=== PATIENT | female | born 1980 | race Caucasian/White ===

== ENCOUNTER 2016-12-19 18:28 | Emergency (ER) | payer OTHER ==
[2016-12-19] MEDS ORDERED: Sulfamethox/Trimethoprim DS 800/160* TAB PO ONE (19:48)
[2016-12-19] MEDS ORDERED: Tetanus-Diptheria Toxoids* 0.5 ML SYRINGE IM ONE (19:48)
--- NOTE | 2016-12-19 19:56 | ED ---
Upper Extremity Pain - HPI Summary HPI Summary: PT PRESENTED TO ER FOR REDNESS OVER THE LF AXILLA FOR THE PAST FOUR DAYS. PT ALSO HAS MILD SWELLING AND PAIN OVER THE AXILLA. NO INJURY AND INSECT BITE OVER THE LF AXILLA. - History of Current Complaint Chief Complaint: EDExtremityUpper Stated Complaint: POSSIBLE INFECTION LT ARM Time Seen by Provider: 12/19/16 19:28 Hx Obtained From: Patient Mechanism Of Injury: Unknown Onset/Duration: Started Days Ago Timing: Constant Severity Initially: Mild Severity Currently: Mild Pain Location: Other: - AXILLA LF Aggravating Factor(s): Movement Alleviating Factor(s): Rest Associated Signs & Symptoms: Positive: Negative - Risk Factors Non-Orthopedic Risk Factor: Negative DVT Risk Factors: Negative Septic Arthritis Risk Factor: Negative - Allergies/Home Medications Allergies/Adverse Reactions: Allergies Allergy/AdvReac Type Severity Reaction Status Date / Time Acetaminophen [From Ultracet] Allergy Intermediate n/v itching Verified 14:22 Bupropion [From Wellbutrin] Allergy Intermediate Nausea Verified 12/19/16 18:35 Clindamycin Allergy Intermediate n/v itching Verified 02/09/16 14:22 Penicillins [PCN] Allergy Intermediate hivers Verified 02/09/16 14:22 Tramadol [From Ultracet] Allergy Intermediate n/v itching Verified 02/09/16 14: 22 Pregabalin [From Lyrica] Allergy Mild Unknown Verified 12/19/16 18:35 Reaction Details Latex Allergy Rash And Verified 02/09/16 14:22 Itching bioxin Allergy Intermediate n/v Uncoded 07/16/15 10:05 PMH/Surg Hx/FS Hx/Imm Hx Endocrine/Hematology History: Reports: Hx Systemic Lupus Erythematosus Denies: Hx Diabetes Cardiovascular History: Reports: Hx Hypertension Denies: Hx Pacemaker/ICD Respiratory History: Reports: Hx Asthma, Other Respiratory Problems/Disorders - LUPUS/SARCOIDOSIS GI History: Reports: Hx Gastroesophageal Reflux Disease, Hx Irritable Bowel Denies: Other GI Disorders History: Comment Only: Other Problems/Disorders - CALCULI Musculoskeletal History: Reports: Hx Back Problems, Hx Bursitis Sensory History: Reports: Hx Contacts or Glasses Denies: Hx Hearing Aid Opthamlomology History: Reports: Hx Contacts or Glasses Neurological History: Reports: Other Neuro Impairments/Disorders - pain clinic injections Psychiatric History: Reports: Hx Anxiety - Riding in a car. Denies: Hx Panic Disorder - Surgical History Surgery Procedure, Year, and Place: HYSTERECTOMY; Exploratory Lap Abdomen; Tubal Ligation; Appendectomy; Lymph Node Biopsy of Lung; Tonsilectomy; Left Ulnar Nerve Surgery; Removal of wisdom teeth Infectious Disease History: Yes Infectious Disease History: Denies: Traveled Outside the [place] in Last 30 Days - Social History Alcohol Use: None Substance Use Type: Reports: None Substance Use Comment - Amount & Last Used: morphine Hx Tobacco Use: Yes Smoking Status (MU): Former Smoker Type: Cigarettes Amount Used/How Often: 1/2 PPD Have You Smoked in the Last Year: Yes Review of Systems - ROS Summary Review of Systems Summary: PAIN/REDNESS LF AXILLA. Constitutional: Negative Skin: Other - REDNESS LF AXILLA, MILD SWELLING, NO NV DEFICIT. All Other Systems Reviewed And Are Negative: Yes Physical Exam Triage Information Reviewed: Yes Vital Signs On Initial Exam: Initial Vitals Temp Pulse Resp BP Pulse Ox 98.6 F 87 16 120/76 100 12/19/16 18:30 12/19/16 18:30 12/19/16 18:30 12/19/16 18:30 12/19/16 18:30 Vital Signs Reviewed: Yes Appearance: Positive: Well-Appearing Skin: Positive: Warm Head/Face: Positive: Normal Head/Face Inspection Eyes: Positive: Normal ENT: Positive: Normal ENT inspection Neck: Positive: Supple Respiratory/Lung Sounds: Positive: Clear to Auscultation, Breath Sounds Present Cardiovascular: Positive: Normal, RRR, Pulses are Symmetrical in both Upper and Lower Extremities Abdomen Description: Positive: Nontender Pelvic Exam: Positive: active bleeding Musculoskeletal: Positive: Other - 4 INCHES [id number] OF REDNESS AND SWELLING OVER THE LF AXILLA TENDERNESS OVER THE LF AXILLA. NO FLUCTUATION OVER THE SWELLING. Neurological: Positive: Normal Diagnostics - Vital Signs Vital Signs Temp Pulse Resp BP Pulse Ox 12/19/16 18:30 98.6 F 87 16 120/76 100 - Laboratory Lab Statement: Any lab studies that have been ordered have been reviewed, and results considered in the medical decision making process. Course/Dx - Course Assessment/Plan: PT HAD CELLULITIS LF AXILLA AND WILL GIVE ABX AND WILL DC TO FOLLOW WITH PMD. IF REDNESS GETS BIGGER TO COME BACK TO ER IMMEDIATELY. IN THE NEXT 72 HRS. - Diagnoses Provider Diagnoses: Cellulitis of axilla, left Discharge - Discharge Plan Condition: Stable Disposition: HOME Prescriptions: Ibuprofen TAB* [Motrin TAB* 600 MG] 600 mg PO Q8H PRN #21 tab PRN Reason: Pain Sulfamethox/Trimethoprim DS* [Bactrim DS 800/160 TAB*] 1 tab PO BID #20 tab
[2016-12-19 20:47] VITALS: BP 103/76
== END 2016-12-19 20:46 | disposition home or self-care (01) ==
LOC: ED 18:28
DX: L03.112 Cellulitis of left axilla (principal); M32.9 Systemic lupus erythematosus, unspecified; I10 Essential (primary) hypertension; K21.9 Gastro-esophageal reflux disease without esophagitis; Z87.891 Personal history of nicotine dependence; Z88.0 Allergy status to penicillin; Z23 Encounter for immunization
CPT/HCPCS: 90471; 99282; A9270-GY

== ENCOUNTER 2017-05-05 18:20 | Emergency (ER) | payer OTHER ==
[2017-05-05] MEDS ORDERED: oxyCODONE TAB* 5 MG TAB PO ONE ×2 (20:41→21:19)
[2017-05-05] MEDS ORDERED: Ketorolac INJ* 60 MG/2 ML VIAL IM ONE (20:41)
[2017-05-05 21:07] VITALS: BP 127/72
--- NOTE | 2017-05-05 21:09 | RAD ---
Indication: Left foot pain. 3 views of left foot demonstrates no fracture. No other bone or joint abnormality is identified. IMPRESSION: No fracture of the left foot is noted.
--- NOTE | 2017-05-05 21:10 | RAD ---
Indication: Left ankle pain and swelling. 3 views of the left ankle demonstrates no fracture. No other bone or joint abnormality is identified. Ankle mortise is intact. IMPRESSION: No fracture of the left ankle is noted.
--- NOTE | 2017-05-12 14:19 | ED ---
Maddie Ingram Alok, scribed for Romeo Banerjee MD on 05/05/17 at 2043 . Lower Extremity - HPI Summary HPI Summary: 37F presents to the ED with left ankle swelling and pain following an accident while playing basketball at 1600. Pt reportedly rolled her left ankle on the concrete. Pt notes difficulty ambulating/bearing weight. Pt denies pain medications [employer]. PMHx includes lupus and fibromyalgia. - History of Current Complaint Chief Complaint: EDExtremityUpper Stated Complaint: LT FOOT INJURY Time Seen by Provider: 05/05/17 20:34 Hx Obtained From: Patient Mechanism Of Injury: Twisted Onset of Pain: Immediate Onset/Duration: Still Present Severity Initially: Moderate Severity Currently: Moderate Pain Intensity: 9 Pain Scale Used: 0-10 Numeric Timing: Constant Location: Is Discrete @ - left ankle Associated Signs And Symptoms: Positive: Swelling Aggravating Factor(s): Ambulation, Weight Bearing Alleviating Factor(s): Nothing Able to Bear Weight: No - Allergies/Home Medications Allergies/Adverse Reactions: Allergies Allergy/AdvReac Type Severity Reaction Status Date / Time Acetaminophen [From Ultracet] Allergy Intermediate n/v itching Verified 14:22 Bupropion [From Wellbutrin] Allergy Intermediate Nausea Verified 12/19/16 18:35 Clindamycin Allergy Intermediate n/v itching Verified 02/09/16 14:22 Penicillins [PCN] Allergy Intermediate hivers Verified 02/09/16 14:22 Tramadol [From Ultracet] Allergy Intermediate n/v itching Verified 02/09/16 14: 22 Pregabalin [From Lyrica] Allergy Mild Unknown Verified 12/19/16 18:35 Reaction Details Latex Allergy Rash And Verified 02/09/16 14:22 Itching bioxin Allergy Intermediate n/v Uncoded 07/16/15 10:05 PMH/Surg Hx/FS Hx/Imm Hx Endocrine/Hematology History: Reports: Hx Systemic Lupus Erythematosus Denies: Hx Diabetes Cardiovascular History: Reports: Hx Hypertension Denies: Hx Pacemaker/ICD Respiratory History: Reports: Hx Asthma, Other Respiratory Problems/Disorders - LUPUS/SARCOIDOSIS GI History: Reports: Hx Gastroesophageal Reflux Disease, Hx Irritable Bowel Denies: Other GI Disorders History: Comment Only: Other Problems/Disorders - CALCULI Musculoskeletal History: Reports: Hx Back Problems, Hx Bursitis Sensory History: Reports: Hx Contacts or Glasses Denies: Hx Hearing Aid Opthamlomology History: Reports: Hx Contacts or Glasses Neurological History: Reports: Other Neuro Impairments/Disorders - pain clinic injections Psychiatric History: Reports: Hx Anxiety - Riding in a car. Denies: Hx Panic Disorder - Surgical History Surgery Procedure, Year, and Place: HYSTERECTOMY; Exploratory Lap Abdomen; Tubal Ligation; Appendectomy; Lymph Node Biopsy of Lung; Tonsilectomy; Left Ulnar Nerve Surgery; Removal of wisdom teeth Infectious Disease History: No Infectious Disease History: Denies: Traveled Outside the [place] in Last 30 Days - Family History Known Family History: Negative: Hypertension - Social History Lives: With Family Alcohol Use: None Substance Use Type: Reports: None Substance Use Comment - Amount & Last Used: morphine Hx Tobacco Use: Yes Smoking Status (MU): Former Smoker Type: Cigarettes Amount Used/How Often: 1/2 PPD Have You Smoked in the Last Year: Yes Review of Systems Negative: Fever Positive: Other - left ankle pain All Other Systems Reviewed And Are Negative: Yes Physical Exam - Summary Physical Exam Summary: Constitutional: Well-developed, Well-nourished, Alert. (-) Distressed Skin: Warm, Dry HENT: Normocephalic; Atraumatic Eyes: Conjunctiva normal Neck: Musculoskeletal ROM normal neck. (-) JVD, (-) Stridor, (-) Tracheal deviation Cardio: Rhythm regular, rate normal, Heart sounds normal; Intact distal pulses; The pedal pulses are 2+ and symmetric. Radial pulses are 2+ and symmetric. (-) Murmur Pulmonary/Chest wall: Effort normal. (-) Respiratory distress, (-) Wheezes, (-) Rales Abd: Soft, (-) Tenderness, (-) Distension, (-) Guarding, (-) Rebound Musculoskeletal: Anterior ankle swollen. No tenderness lateral or medial talus. Dorsal foot swollen. Lymph: (-) Cervical adenopathy Neuro: Alert, Oriented x3 Psych: Mood and affect Normal Triage Information Reviewed: Yes Vital Signs On Initial Exam: Initial Vitals Temp Pulse Resp BP Pulse Ox 98.8 F 78 20 123/78 100 05/05/17 18:42 05/05/17 18:42 05/05/17 18:42 05/05/17 18:42 05/05/17 18:42 Vital Signs Reviewed: Yes Diagnostics - Vital Signs Vital Signs Temp Pulse Resp BP Pulse Ox 05/05/17 19:00 75 15 112/78 98 05/05/17 18:44 98.7 F 72 20 123/78 100 05/05/17 18:42 98.8 F 78 20 123/78 100 - Laboratory Lab Statement: Any lab studies that have been ordered have been reviewed, and results considered in the medical decision making process. - Radiology Foot XRAY Xray Interpretation: Positive (See Comments) - IMPRESSION: NO FRACTURE OF THE LEFT FOOT IS NOTED. Radiology Interpretation Completed By: Radiologist Ankle XRAY Xray Interpretation: Positive (See Comments) - IMPRESSION: NO FRACTURE OF THE LEFT ANKLE IS NOTED. Radiology Interpretation Completed By: Radiologist Lower Extremity Course/Dx - Diagnoses Provider Diagnoses: Strain of left foot Discharge - Discharge Plan Condition: Stable Disposition: HOME Patient Education Materials: Ankle Strain (ED) Additional Instructions: Please follow up with your primary care provider in the next 3-5 days. Repeat XRAYS may be needed. The documentation as recorded by the Maddie vasquez Alok accurately reflects the service I personally performed and the decisions made by me, Romeo Banerjee MD.
== END 2017-05-05 21:50 | disposition home or self-care (01) ==
LOC: ED 18:20
DX: S96.912A Strain of unspecified muscle and tendon at ankle and foot level, left foot, initial encounter (principal); X58.XXXA Exposure to other specified factors, initial encounter; Y93.67 Activity, basketball; Y92.9 Unspecified place or not applicable
CPT/HCPCS: 96372; 99282; A9270-GY; J1885

== ENCOUNTER 2017-05-07 23:00 | Emergency (ER) | payer OTHER ==
[2017-05-08 00:52] VITALS: BP 125/76
--- NOTE | 2017-05-31 08:11 | ED ---
Lower Extremity - HPI Summary HPI Summary: Pt here w/ concern for continued pain and swelling of Lt ankle since injury s/p fall 05/05. Was seen here and XR preformed - no fx, no dislocation. Pt has been taking ibuproden and oxycodone for pain which help some - elevation efforts have been suboptimal after discussion about how she's been doing this. She has multiple other condition including lupus, sarcoidosis and neuropathies. - History of Current Complaint Chief Complaint: EDExtremityLower Stated Complaint: LEFT ANKLE PAIN Time Seen by Provider: 05/07/17 23:48 Hx Obtained From: Patient Pain Intensity: 7 Pain Scale Used: 0-10 Numeric - Allergies/Home Medications Allergies/Adverse Reactions: Allergies Allergy/AdvReac Type Severity Reaction Status Date / Time Acetaminophen [From Ultracet] Allergy Intermediate n/v itching Verified 23:23 Bupropion [From Wellbutrin] Allergy Intermediate Nausea Verified 05/07/17 23:23 Clindamycin Allergy Intermediate n/v itching Verified 05/07/17 23:23 Penicillins [PCN] Allergy Intermediate hivers Verified 05/07/17 23:23 Tramadol [From Ultracet] Allergy Intermediate n/v itching Verified 05/07/17 23: 23 Pregabalin [From Lyrica] Allergy Mild Unknown Verified 05/07/17 23:23 Reaction Details Latex Allergy Rash And Verified 05/07/17 23:23 Itching bioxin Allergy Intermediate n/v Uncoded 05/07/17 23:23 PMH/Surg Hx/FS Hx/Imm Hx Previously Healthy: Yes Endocrine/Hematology History: Reports: Hx Systemic Lupus Erythematosus Denies: Hx Diabetes Cardiovascular History: Reports: Hx Hypertension Denies: Hx Pacemaker/ICD Respiratory History: Reports: Hx Asthma, Other Respiratory Problems/Disorders - LUPUS/SARCOIDOSIS GI History: Reports: Hx Gastroesophageal Reflux Disease, Hx Irritable Bowel Denies: Other GI Disorders History: Comment Only: Other Problems/Disorders - CALCULI Musculoskeletal History: Reports: Hx Back Problems, Hx Bursitis Sensory History: Reports: Hx Contacts or Glasses Denies: Hx Hearing Aid Opthamlomology History: Reports: Hx Contacts or Glasses Neurological History: Reports: Other Neuro Impairments/Disorders - pain clinic injections Psychiatric History: Reports: Hx Anxiety - Riding in a car. Denies: Hx Panic Disorder - Surgical History Surgery Procedure, Year, and Place: HYSTERECTOMY; Exploratory Lap Abdomen; Tubal Ligation; Appendectomy; Lymph Node Biopsy of Lung; Tonsilectomy; Left Ulnar Nerve Surgery; Removal of wisdom teeth Infectious Disease History: Denies: Traveled Outside the [place] in Last 30 Days - Social History Lives: With Family Alcohol Use: Rare Hx Substance Use: No Substance Use Type: Reports: None Substance Use Comment - Amount & Last Used: morphine Hx Tobacco Use: Yes Smoking Status (MU): Former Smoker Type: Cigarettes Amount Used/How Often: 1/2 PPD Have You Smoked in the Last Year: Yes Review of Systems Negative: Fever, Chills Negative: Chest Pain Negative: Shortness Of Breath Positive: no symptoms reported Musculoskeletal: Other - see HPI Positive: Arthralgia, Decreased ROM, Edema Skin: Other - see HPI Negative: Weakness, Paresthesia, Numbness Positive: Anxious All Other Systems Reviewed And Are Negative: Yes Physical Exam Triage Information Reviewed: Yes Vital Signs On Initial Exam: Initial Vitals Temp Pulse Resp BP Pulse Ox 99.0 F 77 20 118/85 99 05/07/17 23:05 05/07/17 23:05 05/07/17 23:05 05/07/17 23:05 05/07/17 23:05 Vital Signs Reviewed: Yes Appearance: Positive: Well-Appearing, No Pain Distress, Well-Nourished Skin: Positive: Warm, Dry - mild ecchymosis of affected area w/ mild edema Respiratory/Lung Sounds: Positive: Breath Sounds Present Cardiovascular: Positive: Pulses are Symmetrical in both Upper and Lower Extremities Musculoskeletal: Positive: Limited @ - Lt toes ROM limited d/t pain, swelling - no gross deformity, no tenting of skin, no crepitus; ankle appears well Neurological: Positive: Normal, Sensory/Motor Intact, Alert, Oriented to Person Place, Time Psychiatric: Positive: Normal Diagnostics - Vital Signs Vital Signs Temp Pulse Resp BP Pulse Ox 05/08/17 00:50 98.3 F 72 14 125/76 05/07/17 23:46 99 F 77 16 118/85 100 05/07/17 23:05 99.0 F 77 20 118/85 99 - Laboratory Lab Statement: Any lab studies that have been ordered have been reviewed, and results considered in the medical decision making process. Lower Extremity Course/Dx - Diagnoses Provider Diagnoses: Left ankle sprain Discharge - Discharge Plan Condition: Stable Disposition: HOME Patient Education Materials: Foot Sprain (ED) Referrals: Deven Lopez MD [Medical Doctor] - Additional Instructions: You appear to have a foot sprain based on your injury and clinical symptoms. This may be a partial tear or complete tear of ligaments and/or tendons in your foot. There is also a possibility you could have a very fine fracture that is not visualized on XR. It is advised that you do not bear weight, keep leg elevated as much and as far as possible. Ice. Continue ibuprofen with food for pain/swelling and oxycodone for pain. Follow-up with orthopedist tomorrow morning for appointment tomorrow. Call at 8:00 - contact information included here. *If your foot continues to swell, becomes red/shiny and/or your toes change color (ie. dark nail beds, lack of pink color when pinched, lack of pulse, etc) return to ED
== END 2017-05-08 00:52 | disposition home or self-care (01) ==
LOC: ED 23:00
DX: S93.402D Sprain of unspecified ligament of left ankle, subsequent encounter (principal); W19.XXXD Unspecified fall, subsequent encounter; M32.9 Systemic lupus erythematosus, unspecified; I10 Essential (primary) hypertension; J45.909 Unspecified asthma, uncomplicated; K21.9 Gastro-esophageal reflux disease without esophagitis; Z90.710 Acquired absence of both cervix and uterus; Z88.0 Allergy status to penicillin; Z88.8 Allergy status to other drugs, medicaments and biological substances; Z88.6 Allergy status to analgesic agent; Z88.1 Allergy status to other antibiotic agents; Z88.5 Allergy status to narcotic agent; Z91.040 Latex allergy status; Z87.891 Personal history of nicotine dependence
CPT/HCPCS: 99281

== ENCOUNTER 2018-01-30 07:52 | Day surgery (SDC) | payer OTHER ==
[~2018-01-30 07:52] MED LIST: Buffered Lidocaine 0.9% SYRIN* 5 ML/SYR SYRINGE INTRADERM ONE; Dexamethasone IV* 4 MG/ML 1 ML (4 MG) IV SLOW PU ONE; Famotidine IV* 10 MG/ML 2 ML (20 mg) IV ONE
[2018-01-30] MEDS ORDERED: Dexamethasone IV* 4 MG/ML 1 ML (4 MG) ONE (08:17)
[2018-01-30] MEDS ORDERED: Famotidine IV* 10 MG/ML 2 ML (20 mg) ONE (08:18)
[2018-01-30] MEDS ORDERED: Clindamycin 900 MG IVPREMIX(* 0 MG/0 ML SDV IV ONE (08:18)
[2018-01-30] MEDS ORDERED: ceFAZolin 2 GM in 100 MLS NS (*) BAG IVPB ONE (08:49)
[2018-01-30] MEDS ORDERED: Bupivacaine 0.5% SDV PF* 10-30ML VIAL ONE (08:59)
[2018-01-30] MEDS ORDERED: fentaNYL* 50 MCG/ML 2 ML VIAL (100 MCG VIAL) ONE ×2 (09:03→10:18)
[2018-01-30] MEDS ORDERED: Midazolam* 1 MG/ML 2 ML VIAL (2 MG) ONE (09:03)
[2018-01-30] MEDS ORDERED: Ondansetron INJ* 2 MG/ML VIAL ONE (09:37)
[2018-01-30] MEDS ORDERED: EPHEDrine (Pressors)* 50 MG/ML VIAL ONE (09:37)
[2018-01-30] MEDS ORDERED: Propofol* 10 MG/ML 20 ML BTL IV PUSH ONE (09:37)
[2018-01-30] MEDS ORDERED: DiMENhydriNATE IV* 50 MG/ML VIAL IV PUSH PRN (10:07)
[2018-01-30] MEDS ORDERED: Naloxone* 0.4 MG/ML 1 ML VIAL IV PRN (10:07)
[2018-01-30] MEDS: fentaNYL* 50 MCG/ML 2 ML VIAL (100 MCG VIAL) IV PRN ×2 (10:20→10:28)
[2018-01-30] MEDS ORDERED: Lidocaine 2% PF * 5 ML VIAL ONE (10:23)
[2018-01-30] MEDS ORDERED: oxyCODONE TAB* 5 MG TAB ONE (11:03)
[2018-01-30 11:33] VITALS: BP 118/76
--- NOTE | 2018-01-31 14:51 | OP ---
DATE OF OPERATION: 01/30/18 - SDS DATE OF : 82 SURGEON: Deven Lopez MD YARD COORDINATOR: Zunilda Chiang PA-C PRE-OP DIAGNOSIS: Displaced nonunited anterior process fracture, left calcaneus. POST-OP DIAGNOSIS: Displaced nonunited anterior process fracture, left calcaneus. OPERATIVE PROCEDURE: Excision anterior process, left calcaneus. DESCRIPTION OF PROCEDURE: The patient was taken to the operating room where a thigh tourniquet was inflated. We made a 5 cm longitudinal incision over the anterior process of the calcaneus. Extensor brevis musculature was split and then a micro sagittal saw used to remove the anterior process flush with the cuboid. We irrigated thoroughly, closing the brevis with some 2-0 Vicryl, subcu 2-0 Vicryl and then andressa for the skin. A compression dressing applied. [id number] #: [id number] MTDD
== END 2018-01-30 11:37 | disposition home or self-care (01) ==
LOC: OR 07:52
PROVIDERS: ATTEND Orthopaedic Surgery
DX: S92.022K Displaced fracture of anterior process of left calcaneus, subsequent encounter for fracture with nonunion (principal); G47.33 Obstructive sleep apnea (adult) (pediatric); Z68.35 Body mass index [BMI] 35.0-35.9, adult; I10 Essential (primary) hypertension; R01.1 Cardiac murmur, unspecified; J45.909 Unspecified asthma, uncomplicated; M79.7 Fibromyalgia; X58.XXXD Exposure to other specified factors, subsequent encounter; Y92.310 Basketball court as the place of occurrence of the external cause
CPT/HCPCS: 81025; A9270-GY; J1100; J2250; J2405; J2704; J3010

== ENCOUNTER 2018-03-07 03:02 | Emergency (ER) | payer OTHER ==
--- OUTSIDE RECORDS SUMMARY | 2018-03-07 03:19 | XMS REPORT ---
:1980 External Reference #:[id number] Author Organization [employer] Address [address] [address] Phone [phone] Care Team Providers Name Role Phone Gian Diamond MD Primary Care Physician Unavailable Payers Type Date Identification Numbers Payment Provider Subscriber Commercial Effective: Policy Number: [id number] [employer] Jackie Blackwell 2006 Medicaid PayID: [id number] [address] [address] [place] [address] Problems Date Description Provider Status Onset: 04/08/2015 Headache Juani Thompson M.D. Active Onset: 01/15/2016 Cramp in lower leg Juani Thompson M.D. Active Family History Date Family Member(s) Problem(s) Comments General Diabetes General Heart Disease General Hypertension General Cancer General Rheumatoid Arthritis General Kidney Disease Social History Type Date Description Comments Lives With Occupation Disabled ETOH Use Rarely consumes alcohol Smoking Patient is a former smoker Exercise Type/Frequency Exercises sporadically Allergies, Adverse Reactions, Alerts Date Description Reaction Status Severity Comments 12/07/2012 Clindamycin active 12/07/2012 Penicillin active 12/07/2012 Biaxin active 12/07/2012 Ultracet active 12/07/2012 Tramadol active 05/13/2017 Latex active 05/13/2017 Adhesive Tape active Medications Medication Date Status Form Strength Qnty SIG Indications Ordering Provider Oxycodone HCL 01/30 Active Capsules 5mg 30cap 1 - 2 s tabs by venkata Lopez M.D. every 4 -6 hours as needed pain Zonisamide 11/15 Active Capsules 100mg 60cap take two s capsules Bonno, MD by mouth at bedtime Aspirin Active Tablets 81mg 1 po qd Unknown Omeprazole Active Capsules 40mg 30cap [address] roper Cetirizine HCL Active Tablets 10mg 30tab 1 po qd Unknown s Hydrochlorothiazide Active Tablets 25mg 30tab 1 po qd Unknown s Metoprolol Succinate Active Tablets 25mg 30tab 1 po qd Unknown ER / ER 24HR s Hydroxychloroquine Active Tablets 200mg 60tab 1 po bid Unknown s Fluoxetine Active Capsules 30mg 90cap 1 po qd s Sumatriptan 02/01 Hx Tablets 50mg 12tab take 1 Juani Gage s tablet by Lennie Thompson M.Barbara 11/01 every hours as directed for headache Relpax 01/23 Hx Tablets 40mg 12tab take 1 by Juani Gage s mouth as Jay - needed M.DAnais 11/01 for headache, may repeat after 2 hours, maximum two tablets a day, maximum 2 days a week Zonisamide 08/14 Hx Capsules 50mg 90cap 3 tabs by Juani Gage jacquelin mouth Jay, - every M.D. 11/15 night at bedtime Pamelor 12/11 Hx Capsules 10mg 150ca 5 caps by Juani Gage ps mouth Jay, - every M.D. 08/14 night directed Gabapentin 12/07 Hx Tablets 600mg 120ta 1 tab by Juani Gage bs venkata Thompson, - twice a M.D. 04/07 day and tabs po qhs Fluooxetine Hx 10mg 3 tabs po Unknown qam - 12/14 Plaquenil Hx Tablets 200mg 180ta 1 po bid Unknown bs - 12/14 Carisoprodol Hx Tablets 350mg 30tab 1 tab po Unknown s tid/prn - 06/08 Nortriptyline Hx 10mg 60uni 2tabs po Juani Gage ts q hs Lennie Thompson M.D. 03/08 Neurontin Hx 1 to two Juani M. /0000 tabs Lennie Colin M.D. 12/07 Tizanidine HCL Hx Capsules 4mg 1 tab Unknown / four - times a 05/28 day. Celebrex Hx Capsules 200mg 1 po bid Unknown / - 04/07 Nicotine Transdermal Hx Kit 21-14-7mg qs apply Unknown /24HR patch - daily 05/28 Morphine Sulfate Hx Tablets 15mg 20tab 1 po bid Unknown s - 11/01 Morphine Sulfate ER Hx Tablets 15mg 1 po bid Unknown ER - 11/01 Baclofen Hx Tablets 10mg 30tab 1/2 tab Unknown s po bid - 11/01 Vital Signs Date Vital Result Comment 02/09/2018 Height 61 inches 5'1" Weight 190.00 lb Respiratory Rate 14 /min Pain Level 4 BMI (Body Mass Index) 35.9 kg/m2 01/12/2018 Height 61 inches 5'1" Weight 190.00 lb Heart Rate 86 /min Respiratory Rate 14 /min Body Temperature 96.9 F Pain Level 5 BMI (Body Mass Index) 35.9 kg/m2 12/15/2017 Heart Rate 74 /min BP Systolic Sitting 124 mmHg BP Diastolic Sitting 86 mmHg Body Temperature 98.8 F 08/30/2017 Height 61 inches 5'1" Weight 202.00 lb Body Temperature 98.2 F Pain Level 5 BMI (Body Mass Index) 38.2 kg/m2 07/05/2017 Height 61 inches 5'1" Weight 202.00 lb Heart Rate 71 /min BP Systolic 120 mmHg BP Diastolic 77 mmHg Body Temperature 97.1 F BMI (Body Mass Index) 38.2 kg/m2 06/14/2017 Height 61 inches 5'1" Weight 202.00 lb BP Systolic 128 mmHg BP Diastolic 72 mmHg Respiratory Rate 17 /min Pain Level 7 BMI (Body Mass Index) 38.2 kg/m2 05/26/2017 Height 61 inches 5'1" Weight 202.00 lb BP Systolic 117 mmHg BP Diastolic 82 mmHg Body Temperature 97.6 F Pain Level 4 BMI (Body Mass Index) 38.2 kg/m2 05/13/2017 Height 61 inches 5'1" Weight 202.00 lb Heart Rate 67 /min BP Systolic 119 mmHg BP Diastolic 87 mmHg Respiratory Rate 16 /min Body Temperature 98.5 F Pain Level 5 BMI (Body Mass Index) 38.2 kg/m2 05/03/2017 Height 61 inches 5'1" Weight 202.50 lb Heart Rate 77 /min BP Systolic Sitting 116 mmHg BP Diastolic Sitting 78 mmHg Respiratory Rate 14 /min BMI (Body Mass Index) 38.3 kg/m2 11/02/2016 Height 61 inches 5'1" Weight 204.00 lb Heart Rate 76 /min BP Systolic Sitting 106 mmHg BP Diastolic Sitting 64 mmHg Respiratory Rate 16 /min BMI (Body Mass Index) 38.5 kg/m2 01/15/2016 Height 61 inches 5'1" Heart Rate 68 /min BP Systolic Sitting 118 mmHg BP Diastolic Sitting 74 mmHg Respiratory Rate 16 /min 04/08/2015 Height 61 inches 5'1" Weight 206.00 lb Heart Rate 76 /min BP Systolic Sitting 132 mmHg BP Diastolic Sitting 74 mmHg Respiratory Rate 16 /min BMI (Body Mass Index) 38.9 kg/m2 10/31/2014 Height 61 inches 5'1" Weight 207.00 lb Heart Rate 72 /min BP Systolic Sitting 124 mmHg BP Diastolic Sitting 82 mmHg Respiratory Rate 16 /min BMI (Body Mass Index) 39.1 kg/m2 06/06/2014 Height 61 inches 5'1" Weight 213.00 lb Heart Rate 88 /min BP Systolic Sitting 116 mmHg BP Diastolic Sitting 84 mmHg Respiratory Rate 16 /min BMI (Body Mass Index) 40.2 kg/m2 12/14/2013 Heart Rate 80 /min BP Systolic Sitting 110 mmHg BP Diastolic Sitting 70 mmHg Respiratory Rate 16 /min 06/08/2013 Height 61 inches 5'1" Weight 190.00 lb Heart Rate 88 /min BP Systolic Sitting 118 mmHg BP Diastolic Sitting 82 mmHg Respiratory Rate 16 /min BMI (Body Mass Index) 35.9 kg/m2 03/08/2013 Heart Rate 94 /min BP Systolic Sitting 138 mmHg BP Diastolic Sitting 92 mmHg Respiratory Rate 16 /min 12/07/2012 Heart Rate 80 /min BP Systolic Sitting 128 mmHg BP Diastolic Sitting 82 mmHg Respiratory Rate 19 /min 12/07/2012 Heart Rate 80 /min BP Systolic 128 mmHg BP Diastolic 82 mmHg Respiratory Rate 19 /min Results Test Date Test Result H/L Range Note CBC Auto Diff 11/02/2016 White Blood Count 4.7 10^3/uL 3.5-10.8 Red Blood Count 4.52 10^6/uL 4.0-5.4 Hemoglobin 14.4 g/dL 12.0-16.0 Hematocrit 41 % 35-47 Mean Corpuscular Volume 91 fL 80-97 Mean Corpuscular Hemoglobin 32 pg High 27-31 Mean Corpuscular HGB Conc 35 g/dL 31-36 Red Cell Distribution Width 13 % 10.5-15 Platelet Count 147 10^3/uL Low 150-450 Mean Platelet Volume 9 um3 7.4-10.4 Abs Neutrophils 2.7 10^3/uL 1.5-7.7 Abs Lymphocytes 1.4 10^3/uL 1.0-4.8 Abs Monocytes 0.5 10^3/uL 0-0.8 Abs Eosinophils 0.1 10^3/uL 0-0.6 Abs Basophils 0 10^3/uL 0-0.2 Abs Nucleated RBC 0 10^3/uL Granulocyte % 57.1 % 38-83 Lymphocyte % 29.7 % 25-47 Monocyte % 10.1 % High 1-9 Eosinophil % 2.3 % 0-6 Basophil % 0.8 % 0-2 Nucleated Red Blood Cells % 0.1 Comp Metabolic Panel 11/02/2016 Sodium 137 mmol/L 133-145 Potassium 3.8 mmol/L 3.5-5.0 Chloride 103 mmol/L 101-111 Co2 Carbon Dioxide 27 mmol/L 22-32 Anion Gap 7 mmol/L 2-11 Glucose 81 mg/dL 70-100 Blood Urea Nitrogen 8 mg/dL 6-24 Creatinine 0.80 mg/dL 0.51-0.95 BUN/Creatinine Ratio 10.0 8-20 Calcium 9.3 mg/dL 8.6-10.3 Total Protein 6.5 g/dL 6.4-8.9 Albumin 4.1 g/dL 3.2-5.2 Globulin 2.4 g/dL 2-4 Albumin/Globulin Ratio 1.7 1-3 Total Bilirubin 0.90 mg/dL 0.2-1.0 Alkaline Phosphatase 54 U/L 34-104 Alt 18 U/L 7-52 Ast 20 U/L 13-39 Egfr Non- 81.6 >60 Egfr 105.0 >60 1 Laboratory test finding 11/02/2016 C Reactive Protein 1.22 mg/L < 5.00 2 Comp Metabolic Panel 01/17/2016 Sodium 137 mmol/L 133-145 Potassium 4.0 mmol/L 3.5-5.0 Chloride 106 mmol/L 101-111 Co2 Carbon Dioxide 26 mmol/L 22-32 Anion Gap 5 mmol/L 2-11 Glucose 97 mg/dL 70-100 Blood Urea Nitrogen 9 mg/dL 6-24 Creatinine 0.89 mg/dL 0.51-0.95 BUN/Creatinine Ratio 10.1 8-20 Calcium 9.2 mg/dL 8.6-10.3 Total Protein 6.2 g/dL Low 6.4-8.9 Albumin 4.1 g/dL 3.2-5.2 Globulin 2.1 g/dL 2-4 Albumin/Globulin Ratio 2.0 1-3 Total Bilirubin 0.90 mg/dL 0.2-1.0 Alkaline Phosphatase 55 U/L 34-104 Alt 23 U/L 7-52 Ast 26 U/L 13-39 Egfr Non- 72.6 >60 Egfr 93.4 >60 3 Cortisol Free 24HR Urine 10/15/2014 Urine Free Cortisol 13 mcg/24h 3.5- 45 4 Urine Collection Duration 24 h 4 Urine Total Volume 3100 mL 4, 5 Laboratory test finding 10/14/2014 Free T4 0.88 ng/mL 0.61-1.12 TSH (Thyroid Stimulating Horm) 1.55 IU/mL 0.34-5.60 Cortisol 12.37 g/dL 6 Hemoglobin A1c 4.9 % Less than 6.0 7 17 Hydroxy Progesterone 52 ng/dL 8 Acth 43 pg/mL 9 1 Because ethnic data is not always readily available, this report includes an eGFR for both -Americans and non- Americans. The National Kidney Disease Education Program (NKDEP) does not endorse the use of the MDRD equation for patients that are not between the ages of 18 and 70, are , have extremes of body size, muscle mass, or nutritional status, or are non- or non-. According to the National Kidney Foundation, irrespective of diagnosis, the stage of the disease is based on the level of kidney function: Stage Description GFR(mL/min/1.73 m(2)) 1 Kidney damage with normal or decreased GFR 90 2 Kidney damage with mild decrease in GFR 60-89 3 Moderate decrease in GFR 30-59 4 Severe decrease in GFR 15-29 5 Kidney failure <15 (or dialysis) 2 Acute inflammation: >10.00 3 Because ethnic data is not always readily available, this report includes an eGFR for both -Americans and non- Americans. The National Kidney Disease Education Program (NKDEP) does not endorse the use of the MDRD equation for patients that are not between the ages of 18 and 70, are , have extremes of body size, muscle mass, or nutritional status, or are non- or non-. According to the National Kidney Foundation, irrespective of diagnosis, the stage of the disease is based on the level of kidney function: Stage Description GFR(mL/min/1.73 m(2)) 1 Kidney damage with normal or decreased GFR 90 2 Kidney damage with mild decrease in GFR 60-89 3 Moderate decrease in GFR 30-59 4 Severe decrease in GFR 15-29 5 Kidney failure <15 (or dialysis) 4 ~~24 HOUR URINE COLLECTED FROM 10/14/14 0900 TO 10/15/14 0900 5 Test Performed by: [place] [address] [employer] Supervisor: Tommy Nieto M.D. 6 AM 8.7-22.4 PM <10 7 Therapeutic target for the treatment of diabetes Mellitus patients is <7% HBA1C, and in selective patients <6.0%.Please refer to [place] [employer] Diabetic care guidelines for further information. 8 REFERENCE VALUE < 80 (Follicular) <285 (Luteal) Test Performed by: [place] [address] [employer] Supervisor: Tommy Nieto M.D. 9 REFERENCE VALUE 1060 (a.m. collection) Test Performed by: [place] [address] [employer] Supervisor: Tommy Nieto M.D. Procedures Date CPT Code Description Status 01/30/2018 02833 FX Calcaneus W/Wo Fixation Open TX Completed 01/30/2018 34814 FX Calcaneus W/Wo Fixation Open TX Completed 11/10/2004 02726 Color Doppler Completed 11/10/2004 66813 Pulse Doppler & Continuous Wave Completed 11/10/2004 52446 Echocardiogram Completed Encounters Type Date Location Provider CPT E/M Dx Office Visit 01/12/2018 [facility] Dev[facility] 27571 S92.215D 11:15a Of Katie Chery Office Visit 12/15/2017 [facility] 62419 S92.215D 9:45a Of Katie Chery Office Visit 08/30/2017 [facility] Dev[facility] 49117 G57.92 10:00a Of Katie Chery S93.402D Office Visit 07/05/2017 11:15a [facility] Deven Lopez 92879 G57.92 Katie Chery S93.402A S92.215A Office Visit 06/14/2017 11:30a [facility] Deven Lopez 18976 G57.92 Of Katie Chery Office Visit 05/26/2017 8:30a [facility] Deven Lopez 58211 M79.672 Of Katie Chery Office Visit 05/13/2017 1:00p [facility] Dev[facility] Lopez 19047 S93.402A Of Katie Chery Office Visit 05/03/2017 10:45a [facility] Juani Thompson 43246 G43.909 Services Of Stable Helper M.DAnais Office Visit 11/02/2016 8:45a [facility] Juani Thompson 10162 G43.909 Services Of Richelle Chery R22.2 Office Visit 01/15/2016 10:15a [facility] Juani Thompson 47333 G43.909 Services Of Stable Helper M.D. R25.2 Office Visit 04/08/2015 10:00a [facility] Juani Hurleyelizabeth, 84795 784.0 Services Of Stable Helper M.D. 346.91 Office Visit 10/31/2014 10:30a [facility] Juani Hurleyelizabeth, 04452 346.90 Services Of Stable Helper M.D. Office Visit 06/06/2014 10:15a [facility] Juani Hurleyelizabeth, 24441 346.90 Services Of Stable Helper M.D. Office Visit 12/14/2013 8:45a [facility] Juani Hurleyelizabeth, 16733 356.9 Services Of Stable Helper M.D. 724.2 346.90 Office Visit 06/08/2013 10:30a [facility] Juani JaramilloAnias Meielizabeth, 03778 356.9 Services Of Stable Helper M.D. 724.4 346.90 Office Visit 03/08/2013 10:30a [facility] Juani ClintAnais Meielizabeth, 94391 356.9 Services Of Stable Helper M.D. 724.4 Office Visit 12/07/2012 11:30a [facility] Juani ClintAnais Meielizabeth, 38792 356.9 Services Of Stable Helper M.D. 724.2 Office Visit 02/19/2011 8:30a [facility] Fozia Quinn, 99096 354.2 Of Katie Chery Office Visit 12/22/2010 9:30a [facility] F[facility] Quinn, 35293 354.2 Of Katie Chery Plan of Care Future Appointment(s):03/02/2018 8:45 am - Deven Lopez M.D. at [facility]ajat06/07/2018 9:30 am - Yolanda Knott M.D. at [facility]
[2018-03-07] MEDS ORDERED: Ibuprofen TAB* 800 MG PO ONE (03:29)
--- NOTE | 2018-03-07 04:09 | ED ---
[place] Ingram Stephanie, scribed for Lulu Godwin MD on 03/07/18 at 0333 . Throat Pain/Nasal Congestion - HPI Summary HPI Summary: The pt is a 38 y/o F presenting to the ED with c/o sore throat that began on 03/02. Symptoms include ear ache. The pt denies fever. - History of Current Complaint Chief Complaint: EDThroatPain Time Seen by Provider: 03/07/18 03:23 Hx Obtained From: Patient Onset/Duration: Gradual Onset, Lasting Days - 5, Still Present Severity: Moderate - Allergies/Home Medications Allergies/Adverse Reactions: Allergies Allergy/AdvReac Type Severity Reaction Status Date / Time Adhesive Tape Allergy Intermediate Rash Verified 03/07/18 03:26 clindamycin Allergy Intermediate Nausea And Verified 03/07/18 03:26 Vomiting tramadol Allergy Intermediate Nausea And Verified 03/07/18 03:26 Vomiting pregabalin Allergy Mild Unknown Verified 03/07/18 03:26 Reaction Details bupropion Allergy Nausea Verified 03/07/18 03:26 latex Allergy Rash Verified 03/07/18 03:26 Penicillins Allergy Rash Verified 03/07/18 03:26 bioxin Allergy Intermediate n/v Uncoded 03/07/18 03:26 PMH/Surg Hx/FS Hx/Imm Hx Endocrine/Hematology History: Reports: Hx Systemic Lupus Erythematosus Denies: Hx Diabetes Cardiovascular History: Reports: Hx Hypertension - on medication Denies: Hx Pacemaker/ICD, Other Cardiovascular Problems/Disorders Respiratory History: Reports: Hx Asthma - no meds currently, Hx Sleep Apnea Denies: Other Respiratory Problems/Disorders GI History: Reports: Hx Gastroesophageal Reflux Disease - on medication, Hx Hiatal Hernia, Hx Irritable Bowel Denies: Other GI Disorders History: Reports: Hx Kidney Infection, Hx Kidney Stones - history of, none recent, Other Problems/Disorders - Prone to UTIs, none recent Musculoskeletal History: Reports: Hx Arthritis, Hx Back Problems, Hx Bursitis, Hx Tendonitis, Other Musculoskeletal History - left cuboid fracture, 05/14, Degenerative disc disease, LUPUS Sensory History: Denies: Hx Contacts or Glasses, Hx Hearing Aid Opthamlomology History: Denies: Hx Contacts or Glasses Neurological History: Reports: Hx Migraine, Other Neuro Impairments/Disorders - Neuropathy Psychiatric History: Reports: Hx Anxiety - riding in cars Denies: Hx Panic Disorder - Surgical History Surgery Procedure, Year, and Place: HYSTERECTOMY; Exploratory Lap Abdomen; Tubal Ligation; Appendectomy; Lymph Node Biopsy of Lung; Tonsilectomy; Left Ulnar Nerve Surgery; Removal of wisdom teeth Hx Anesthesia Reactions: Yes - states they had a hard time waking her up - Immunization History Date of Influenza Vaccine: has not received Infectious Disease History: No Infectious Disease History: Reports: Hx Hepatitis - pt is unsure, age 17, wasn' t allowed to breast feed, never treated Denies: Traveled Outside the [place] in Last 30 Days - Family History Known Family History: Positive: Unknown - The pt denies fhx. - Social History Occupation: Unemployed Lives: With Family Alcohol Use: None Hx Substance Use: No Substance Use Type: Reports: None Substance Use Comment - Amount & Last Used: morphine Hx Tobacco Use: Yes Smoking Status (MU): Former Smoker Type: Cigarettes Amount Used/How Often: 1/2 PPD Have You Smoked in the Last Year: Yes Review of Systems Negative: Fever Positive: Sore Throat, Ear Ache Negative: Slurred Speech All Other Systems Reviewed And Are Negative: Yes Physical Exam - Summary Physical Exam Summary: VITAL SIGNS: Reviewed. GENERAL: Patient is a well-developed and nourished FEMALE who is lying comfortable in the stretcher. Patient is not in any acute respiratory distress. HEAD AND FACE: No signs of trauma. No ecchymosis, hematomas or skull depressions. No sinus tenderness. EYES: PERRLA, EOMI x 2, No injected conjunctiva, no nystagmus. EARS: Hearing grossly intact. Ear canals and tympanic membranes are within normal limits. MOUTH: Oropharynx within normal limits. NECK: Supple, trachea is midline, no adenopathy, no JVD, no carotid bruit, no c- spine tenderness, neck with full ROM. CHEST: Symmetric, no tenderness at palpation LUNGS: Clear to auscultation bilaterally. No wheezing or crackles. CVS: Regular rate and rhythm, S1 and S2 present, no murmurs or gallops appreciated. ABDOMEN: Soft, non-tender. No signs of distention. No rebound no guarding, and no masses palpated. Bowel sounds are normal. EXTREMITIES: FROM in all major joints, no edema, no cyanosis or clubbing. NEURO: Alert and oriented x 3. No acute neurological deficits. Speech is normal and follows commands. SKIN: Dry and warm Triage Information Reviewed: Yes Vital Signs On Initial Exam: Initial Vitals Temp Pulse Resp BP Pulse Ox 97.7 F 77 18 127/86 98 03/07/18 03:10 03/07/18 03:10 03/07/18 03:10 03/07/18 03:10 03/07/18 03:10 Vital Signs Reviewed: Yes Diagnostics - Vital Signs Vital Signs Temp Pulse Resp BP Pulse Ox 03/07/18 03:10 97.7 F 77 18 127/86 98 - Laboratory Lab Statement: Any lab studies that have been ordered have been reviewed, and results considered in the medical decision making process. EENT Course/Dx - Course Course Of Treatment: The pt is a 38 y/o F presenting to the ED with c/o sore throat that began on 03/02/18. Symptoms include ear ache. The pt denies fever. - Diagnoses Provider Diagnoses: Viral pharyngitis Discharge - Sign-Out/Discharge Documenting (check all that apply): Discharge - Discharge Plan Condition: Stable Disposition: HOME Prescriptions: Ibuprofen TAB* [Motrin TAB* 800 MG] 800 mg PO Q6H PRN #30 tab PRN Reason: Pain Patient Education Materials: Pharyngitis (ED) Referrals: Gian Diamond MD [Primary Care Provider] - 2 Days Additional Instructions: RETURN TO EMERGENCY DEPARTMENT FOR ANY NEW OR WORSENING SYMPTOMS. The documentation as recorded by the [place] vasquez Stephanie accurately reflects the service I personally performed and the decisions made by , Lulu Godwin MD.
[2018-03-07 04:22] VITALS: BP 125/80
== END 2018-03-07 04:20 | disposition home or self-care (01) ==
LOC: ED 03:02
DX: J02.9 Acute pharyngitis, unspecified (principal); K21.9 Gastro-esophageal reflux disease without esophagitis; Z87.891 Personal history of nicotine dependence; M32.9 Systemic lupus erythematosus, unspecified; I10 Essential (primary) hypertension
CPT/HCPCS: 87651; 99282; A9270-GY

== ENCOUNTER 2018-06-06 18:42 | Emergency (ER) | payer OTHER ==
[2018-06-06] MEDS ORDERED: Ondansetron TAB* 4 MG PO ONE (19:43)
[2018-06-06] MEDS ORDERED: NS 0.9% 1000 ML* 2,000 ML IV ONE (19:43)
--- NOTE | 2018-06-06 19:46 | ED ---
Abdominal Pain/Female - HPI Summary HPI Summary: This patient is a 38 year old F presenting to ED with a chief complaint of back pain since 4 days ago. The patient was getting up from urinating when there was sharp pain in her back. The CC is described as sharp, constant pain that has worsened since onset, and radiating to the R flank and the back. The patient rates the pain 5/10 in severity. Symptoms aggravated by coughing. Symptoms alleviated by nothing. Patient reports diarrhea (secondary to IBS), and nausea. Patient denies vomiting, dysuria, fever, and decreased appetite. PMHx of kidney infection/stones, SHx appendectomy. - History of Current Complaint Chief Complaint: EDFlankPain Stated Complaint: ABD AND FLANK PAIN Time Seen by Provider: 06/06/18 19:29 Hx Obtained From: Patient Onset/Duration: Sudden Onset, Lasting Days, Still Present, Worse Since Timing: Days Severity Initially: Moderate Severity Currently: Moderate Pain Intensity: 5 Pain Scale Used: 0-10 Numeric Location: Other - back pain Radiates: Yes Radiates to: Flank - R flank, RLQ Character: Sharp Aggravating Factor(s): Nothing Alleviating Factor(s): Nothing Associated Signs and Symptoms: Positive: Other: - Patient reports diarrhea ( secondary to IBS), and nausea. Patient denies vomiting, dysuria, fever, and decreased appetite. Allergies/Adverse Reactions: Allergies Allergy/AdvReac Type Severity Reaction Status Date / Time Adhesive Tape Allergy Intermediate Rash Verified 06/06/18 18:46 clindamycin Allergy Intermediate Nausea And Verified 06/06/18 18:46 Vomiting tramadol Allergy Intermediate Nausea And Verified 06/06/18 18:46 Vomiting pregabalin Allergy Mild Unknown Verified 06/06/18 18:46 Reaction Details bupropion Allergy Nausea Verified 06/06/18 18:46 latex Allergy Rash Verified 06/06/18 18:46 Penicillins Allergy Rash Verified 06/06/18 18:46 bioxin Allergy Intermediate n/v Uncoded 06/06/18 18:46 Home Medications: Home Medications FLUoxetine CAP* [PROzac CAP*] 20 mg PO DAILY 06/06/18 [History Confirmed ] Metoprolol Succinate XL TAB* [Toprol XL TAB*] 25 mg PO DAILY 06/06/18 [History Confirmed 06/06/18] Omeprazole CAP* [Prilosec CAP* 20 MG] 40 mg PO DAILY 06/06/18 [History Confirmed 06/06/18] busPIRone TAB* [Buspar TAB *] 15 mg PO DAILY 06/06/18 [History Confirmed ] PMH/Surg Hx/FS Hx/Imm Hx Endocrine/Hematology History: Reports: Hx Systemic Lupus Erythematosus Denies: Hx Diabetes Cardiovascular History: Reports: Hx Hypertension - on medication Denies: Hx Pacemaker/ICD, Other Cardiovascular Problems/Disorders Respiratory History: Reports: Hx Asthma - no meds currently, Hx Sleep Apnea Denies: Other Respiratory Problems/Disorders GI History: Reports: Hx Gastroesophageal Reflux Disease - on medication, Hx Hiatal Hernia, Hx Irritable Bowel Denies: Other GI Disorders History: Reports: Hx Kidney Infection, Hx Kidney Stones - history of, none recent, Other Problems/Disorders - Prone to UTIs, none recent Musculoskeletal History: Reports: Hx Arthritis, Hx Back Problems, Hx Bursitis, Hx Tendonitis, Other Musculoskeletal History - left cuboid fracture, 05/14, Degenerative disc disease, LUPUS Sensory History: Denies: Hx Contacts or Glasses, Hx Hearing Aid Opthamlomology History: Denies: Hx Contacts or Glasses Neurological History: Reports: Hx Migraine, Other Neuro Impairments/Disorders - Neuropathy Psychiatric History: Reports: Hx Anxiety - riding in cars Denies: Hx Panic Disorder - Surgical History Surgery Procedure, Year, and Place: HYSTERECTOMY; Exploratory Lap Abdomen; Tubal Ligation; Appendectomy; Lymph Node Biopsy of Lung; Tonsilectomy; Left Ulnar Nerve Surgery; Removal of wisdom teeth Hx Anesthesia Reactions: Yes - states they had a hard time waking her up - Immunization History Date of Influenza Vaccine: has not received Infectious Disease History: No Infectious Disease History: Reports: Hx Hepatitis - pt is unsure, age 17, wasn' t allowed to breast feed, never treated Denies: Traveled Outside the [place] in Last 30 Days - Family History Known Family History: Negative: Cardiac Disease, Hypertension, Diabetes - Social History Alcohol Use: None Hx Substance Use: No Substance Use Type: Reports: None Substance Use Comment - Amount & Last Used: morphine Hx Tobacco Use: Yes Smoking Status (MU): Former Smoker Type: Cigarettes Amount Used/How Often: 1/2 PPD Have You Smoked in the Last Year: Yes Review of Systems Negative: Fever Positive: Abdominal Pain - R flank and RLQ, Diarrhea, Nausea, Other - denies decreased appetite. Negative: Vomiting Negative: dysuria Positive: Other - back pain All Other Systems Reviewed And Are Negative: Yes Physical Exam - Summary Physical Exam Summary: Appearance: Well-appearing, Well-nourished, lying in bed comfortably Skin: Warm, dry, no obvious rash Eyes: sclera anicteric, no conjunctival pallor ENT: mucous membranes moist, pharynx appears normal Neck: Supple, nontender Respiratory: Clear to auscultation, no signs of respiratory distress Cardiovascular: Normal S1, S2. No murmurs. Normal distal pulses in tibial and radial bilaterally. Abdomen: Soft, tenderness in the RLQ with a bit of guarding, normal active bowel sounds present Musculoskeletal: Normal, Strength/ROM Intact Neurological: A&Ox3, awake and alert, mentation is normal, speech is fluent and appropriate Psychiatric: affect is normal, does not appear anxious or depressed Triage Information Reviewed: Yes Vital Signs On Initial Exam: Initial Vitals Temp Pulse Resp BP Pulse Ox 98.3 F 77 12 133/80 95 06/06/18 18:43 06/06/18 18:43 06/06/18 18:43 06/06/18 18:43 06/06/18 18:43 Vital Signs Reviewed: Yes Diagnostics - Vital Signs Vital Signs Temp Pulse Resp BP Pulse Ox 06/06/18 18:43 98.3 F 77 12 133/80 95 - Laboratory Result Diagrams: 06/06/18 19:58 06/06/18 19:58 Lab Statement: Any lab studies that have been ordered have been reviewed, and results considered in the medical decision making process. Re-Evaluation - Re-Evaluation First Eval Re-Evaluation Time: 21:25 Comment: The patient reports her pain is under control. Discussed with the patient about further workup, taking a CT abd/pel. Abdominal Pain Fem Course/Dx - Course Course Of Treatment: This is a 38-year-old woman with a 3 day history of progressively worsening pain starting in the right lower back and now extending around the flank into the right lower quadrant associated with some nausea. She has a history of kidney stones but urinalysis does not show signs of hematuria. Appendicitis was considered, but the patient has already had her appendix out. Given the progressive nature and severity of her pain and the lack of a diagnosis I elected to obtain a CT scan of the abdomen to further evaluate her problem. - Diagnoses Provider Diagnoses: Abdominal pain Discharge - Sign-Out/Discharge Documenting (check all that apply): Sign-Out Patient Signing out patient TO: Lulu Godwin - Discharge Plan Referrals: Gian Diamond MD [Primary Care Provider] -
[2018-06-06] MEDS ORDERED: Ketorolac INJ* 30 MG/ML 1 ML VIAL IV PUSH ONE (19:47)
[2018-06-06 20:16] LABS: ABS Basophils 0 10^3/ul (0-0.2); ABS Eosinophils 0.2 10^3/ul (0-0.6); ABS Lymphocytes 2.4 10^3/ul (1.0-4.8); ABS Monocytes 0.4 10^3/ul (0-0.8); ABS Nucleated RBC 0 10^3/ul; Eosinophil % 3.4 % (0-6); Hematocrit 40 % (35-47); Hemoglobin 14.6 g/dl (12.0-16.0); Mean Corpuscular HGB Conc 36 g/dl (31-36); Mean Corpuscular Hemoglobin 33 pg (27-31); Mean Corpuscular Volume 90 fL (80-97); Mean Platelet Volume 8.5 um3 (7.4-10.4); Nucleated Red Blood Cells % 0.2; Platelet Count 152 10^3/ul (150-450); Red Blood Count 4.45 10^6/ul (4.00-5.40); Red Cell Distribution Width 14 % (10.5-15); White Blood Count 5.1 10^3/ul (3.5-10.8)
[2018-06-06 20:18] LABS: Urine Appearance Cloudy; Urine Blood Negative (Negative); Urine Color Amber; Urine Ketones Trace (Negative); Urine Protein 1+(30 mg/dL) (Negative); Urine Red Blood Cell Trace(0-2/hpf) (Absent); Urine Specific Gravity 1.029 (1.010-1.030); Urine Urobilinogen Negative (Negative); Urine White Blood Cell Trace(0-5/hpf) (Absent)
[2018-06-06 20:31] LABS: EGFR Non-African American 88.3 (>60)
[2018-06-06] MEDS ORDERED: Iohexol 300* (CONTRAST) 10 ML SDV IV ONE (21:33)
--- NOTE | 2018-06-06 23:28 | ED ---
Progress - Progress Note Progress Note: Pt was signed out by Dr. Erazo, pending dispo, awaiting CT Abd/Pel. - Results/Orders Results/Orders: CT Abd/Pel: As read by radiologist: Abdomen: Liver:: Mild hepatic steatosis Bile ducts: Within normal limits Gallbladder:: Decompressed gallbladder. Pancreas:: Within normal limits. Spleen:: Borderline splenomegaly Adrenals: Within normal limits Kidneys: no evidence of hydronephorsis or nephrolithiasis Stomach:: Within normal limits Bowel:: No evidence f small bowel obstruction or mass. Status post appendectomy. Pelvis: Reproductive organs: Status post hysterectomy. Small bilateral ovarian cysts Bladder: Decompressed bladder vessels: Aorta: Within the normal limits without aneurysm or dissection. Retrperitoneum: Within normal limits Bones:: No suspicious osseous lesions. ED physician reviewed this report. Pending official report. Re-Evaluation - Re-Evaluation First Eval Re-Evaluation Time: 23:25 Change: Improved Course/Dx - Course Course Of Treatment: Pt was signed out by Dr. Erazo, pending dispo, awaiting CT Abd/Pel. CT Abd/Pel results above. Pt will be D/C to home with Dx of abdominal pain. She understands and agrees. - Diagnoses Provider Diagnoses: Abdominal pain Discharge - Sign-Out/Discharge Documenting (check all that apply): Patient Departure - Discharge, Receiving Sign-Out Receiving patient FROM: Teja Erazo - Discharge Plan Condition: Stable Disposition: HOME Patient Education Materials: Acute Abdominal Pain (ED) Referrals: Gian Diamond MD [Primary Care Provider] - 2 Days Additional Instructions: RETURN TO ED FOR ANY NEW OR WORSENING SYMPTOMS.
[2018-06-07 00:08] VITALS: BP 109/71
--- NOTE | 2018-06-07 07:29 | RAD ---
CLINICAL HISTORY: Right lower quadrant and flank pain. Surgical history includes hysterectomy, appendectomy and exploratory laparotomy. COMPARISON: CT abdomen pelvis March 08, 2008 TECHNIQUE: Contrast enhanced CT examination of the abdomen and pelvis from the lung bases through the initial tuberosities. The patient received 117 mL Omnipaque 300 intravenously prior to imaging.The patient received oral contrast as well prior to imaging. FINDINGS: VISUALIZED LUNG BASES: The visualized lung bases are grossly clear. There is no pleural effusion. ABDOMEN AND PELVIS: Liver is homogenously hypodense relative to the spleen. The liver is otherwise normal in appearance. The spleen, pancreas and adrenal glands are grossly normal in appearance. The gallbladder is normal. The kidneys are normal in appearance without focal mass, calcification or signs of hydronephrosis. The oral contrast has progressed only as far as the distal small bowel which limits evaluation of the terminal ileum and colon. The small and large bowel are not distended. There is surgical material at the base of the cecum consistent with the patient's history of appendectomy. There is no gross retroperitoneal or mesenteric lymphadenopathy. The uterus is surgically absent. The abdominal aorta and iliac arteries are normal in course and diameter. There are no sinister bone lesions. IMPRESSION: 1. Likely hepatic steatosis. 2. No CT apparent acute abnormalities account for the patient's current presentation.
== END 2018-06-07 00:08 | disposition home or self-care (01) ==
LOC: ED 18:42
DX: R10.31 Right lower quadrant pain (principal); M54.5 Low back pain; K58.0 Irritable bowel syndrome with diarrhea; I10 Essential (primary) hypertension; K21.9 Gastro-esophageal reflux disease without esophagitis; Z79.899 Other long term (current) drug therapy; Z87.891 Personal history of nicotine dependence; Z86.19 Personal history of other infectious and parasitic diseases; Z87.442 Personal history of urinary calculi; Z90.89 Acquired absence of other organs; Z88.3 Allergy status to other anti-infective agents
CPT/HCPCS: 36415; 74177; 80053; 81003; 81015; 83690; 85025; 87086; 96361; 96374; 99283; A9270-GY; J1885; Q9967

== ENCOUNTER 2018-06-20 18:07 | Emergency (ER) | payer OTHER ==
[2018-06-20] MEDS ORDERED: Aspirin 81 mg CHEW TAB* 81 MG TAB.CHEW PO ONE (18:45)
--- NOTE | 2018-06-20 18:49 | ED ---
HPI Chest Pain - HPI Summary HPI Summary: 38 y/o female presents to the ED c/o L side chest pain starting 3 days ago. Pain is intermittent, coming when pt is at rest. Denies SOB. Associated sx: diaphoresis, nausea. Pain rated 7/10 in severity, described as someone "clenching at her heart". Aggravated with deep breaths and movement. PMHx HTN. FHx - COPD, lung cancer. Former smoker. This is scribe Ed Hawa documenting for attending Jamaal Mullins MD - History of Current Complaint Chief Complaint: EDChestWallPain Time Seen by Provider: 06/20/18 18:44 Hx Obtained From: Patient Onset/Duration: Started Days Ago Timing: Intermittent Pain Intensity: 4 Pain Scale Used: 0-10 Numeric Chest Pain Location: Left Lateral Chest Pain Radiates: No Character: Other: - "someone clenching at her heart" Aggravating Factor(s): Movement, Deep Breaths Alleviating Factor(s): Nothing Associated Signs and Symptoms: Positive: Chest Pain, Diaphoresis, Nausea - Allergy/Home Medications Allergies/Adverse Reactions: Allergies Allergy/AdvReac Type Severity Reaction Status Date / Time Adhesive Tape Allergy Intermediate Rash Verified 06/20/18 18:12 clindamycin Allergy Intermediate Nausea And Verified 06/20/18 18:12 Vomiting tramadol Allergy Intermediate Nausea And Verified 06/20/18 18:12 Vomiting pregabalin Allergy Mild Unknown Verified 06/20/18 18:12 Reaction Details bupropion Allergy Nausea Verified 06/20/18 18:12 latex Allergy Rash Verified 06/20/18 18:12 Penicillins Allergy Rash Verified 06/20/18 18:12 bioxin Allergy Intermediate n/v Uncoded 06/20/18 18:12 PMH/Surg Hx/FS Hx/Imm Hx Previously Healthy: No Endocrine/Hematology History: Reports: Hx Systemic Lupus Erythematosus Denies: Hx Diabetes Cardiovascular History: Reports: Hx Hypertension - on medication Denies: Hx Pacemaker/ICD, Other Cardiovascular Problems/Disorders Respiratory History: Reports: Hx Asthma - no meds currently, Hx Sleep Apnea Denies: Other Respiratory Problems/Disorders GI History: Reports: Hx Gastroesophageal Reflux Disease - on medication, Hx Hiatal Hernia, Hx Irritable Bowel Denies: Other GI Disorders History: Reports: Hx Kidney Infection, Hx Kidney Stones - history of, none recent, Other Problems/Disorders - Prone to UTIs, none recent Musculoskeletal History: Reports: Hx Arthritis, Hx Back Problems, Hx Bursitis, Hx Tendonitis, Other Musculoskeletal History - left cuboid fracture, 05/14, Degenerative disc disease, LUPUS Sensory History: Denies: Hx Contacts or Glasses, Hx Hearing Aid Opthamlomology History: Denies: Hx Contacts or Glasses Neurological History: Reports: Hx Migraine, Other Neuro Impairments/Disorders - Neuropathy Psychiatric History: Reports: Hx Anxiety - riding in cars Denies: Hx Panic Disorder - Surgical History Surgery Procedure, Year, and Place: HYSTERECTOMY; Exploratory Lap Abdomen; Tubal Ligation; Appendectomy; Lymph Node Biopsy of Lung; Tonsilectomy; Left Ulnar Nerve Surgery; Removal of wisdom teeth Hx Anesthesia Reactions: Yes - states they had a hard time waking her up - Immunization History Date of Influenza Vaccine: has not received Infectious Disease History: No Infectious Disease History: Reports: Hx Hepatitis - pt is unsure, age 17, wasn' t allowed to breast feed, never treated Denies: Traveled Outside the [place] in Last 30 Days - Family History Known Family History: Negative: Cardiac Disease, Hypertension, Diabetes - Social History Alcohol Use: None Hx Substance Use: No Substance Use Type: Reports: None Substance Use Comment - Amount & Last Used: morphine Hx Tobacco Use: Yes Smoking Status (MU): Former Smoker Type: Cigarettes Amount Used/How Often: 1/2 PPD Have You Smoked in the Last Year: Yes Review of Systems Positive: Skin Diaphoresis Eyes: Negative ENT: Negative Positive: Chest Pain Respiratory: Negative Positive: Nausea Genitourinary: Negative Musculoskeletal: Negative Skin: Negative Neurological: Negative Psychological: Normal All Other Systems Reviewed And Are Negative: Yes Physical Exam - Summary Physical Exam Summary: VITAL SIGNS: Reviewed. GENERAL: Patient is a well-developed and nourished female who is lying comfortable in the stretcher. Patient is not in any acute respiratory distress. HEAD AND FACE: No signs of trauma. No ecchymosis, hematomas or skull depressions. No sinus tenderness. EYES: PERRLA, EOMI x 2, No injected conjunctiva, no nystagmus. EARS: Hearing grossly intact. Ear canals and tympanic membranes are within normal limits. MOUTH: Oropharynx within normal limits. NECK: Supple, trachea is midline, no adenopathy, no JVD, no carotid bruit, no c- spine tenderness, neck with full ROM. CHEST: Symmetric, reproducible chest pain. LUNGS: Clear to auscultation bilaterally. No wheezing or crackles. CVS: Regular rate and rhythm, S1 and S2 present, no murmurs or gallops appreciated. ABDOMEN: Soft, non-tender. No signs of distention. No rebound no guarding, and no masses palpated. Bowel sounds are normal. EXTREMITIES: FROM in all major joints, no edema, no cyanosis or clubbing. NEURO: Alert and oriented x 3. No acute neurological deficits. Speech is normal and follows commands. SKIN: Dry and warm Triage Information Reviewed: Yes Vital Signs On Initial Exam: Initial Vitals Temp Pulse Resp BP Pulse Ox 98.3 F 82 16 141/85 99 06/20/18 18:10 06/20/18 18:10 06/20/18 18:10 06/20/18 18:10 06/20/18 18:10 Vital Signs Reviewed: Yes Diagnostics - Vital Signs Vital Signs Temp Pulse Resp BP Pulse Ox 06/20/18 18:10 98.3 F 82 16 141/85 99 - Laboratory Result Diagrams: 06/20/18 18:52 06/20/18 18:52 Lab Statement: Any lab studies that have been ordered have been reviewed, and results considered in the medical decision making process. - Radiology CXR Xray Interpretation: No Acute Changes - NO EVIDENCE FOR ACTIVE CARDIOPULMONARY DISEASE Radiology Interpretation Completed By: Radiologist - EKG 1 EKG Interpretation: 18:24 - SR @ [address] elevations. Q wave in III. EKG Comparison: No Significant Change - 12/26/12 Re-Evaluation - Re-Evaluation 1 Re-Evaluation Time: 21:39 Comment: Discuss test results and findings, plan to d/c Chest Pain Course/Dx - Course Assessment/Plan: This patient is a 38-year-old female who presents to the emergency department with a chief complaint of having left-sided chest pain. She reports that the pain is 7 out of 10 nonradiating. The pain is been present for the last 3 days. She reports that the pain gets worse when she moves she takes a deep breath. She has past medical history significant for hypertension, fibromyalgia, Barretts esophagus, migraine headaches, and depression. Blood test results without any significant abnormality. Troponin # 1 is 0.00. EKG shows a normal sinus rhythm with no ST elevations. Chest x-ray impression: No evidence for active cardiopulmonary disease. In the ED course the patient was given aspirin and the pain improved. The patient was given 1 dose of Tylenol and the symptoms resolved. I believe that the patient has also started pain. Also the d-dimer was less than 200 therefore I have no suspicion for pulmonary embolism. At this time I discussed my findings and test results with the patient and the need to follow up with primary care physician. Patient was instructed to return to the emergency department if she develops any other symptoms besides the chest pain, shortness of breath, nausea vomiting or diaphoresis. The patient understands and agrees. Patient is hemodynamically stable alert and oriented 3. - Diagnoses Provider Diagnoses: Chest pain Discharge - Sign-Out/Discharge Documenting (check all that apply): Patient Departure - Discharge Plan Condition: Stable Disposition: HOME Patient Education Materials: Chest Pain (ED) Referrals: Gian Diamond MD [Primary Care Provider] - 4 Days (PLEASE F/U IN 3-5 DAYS) Additional Instructions: RETURN TO THE ED FOR CHANGING/WORSENING SYMPTOMS
--- NOTE | 2018-06-20 19:00 | RAD ---
INDICATION: Chest pain. COMPARISON: Correlation is made with a prior chest x-ray study from May 23, 2014. TECHNIQUE: Dual-energy PA and lateral views of the chest were obtained. FINDINGS: The heart is within normal limits in size. Mediastinal and hilar contours appear within normal limits. The lungs are clear. No pleural effusion or pneumothorax is seen. IMPRESSION: NO EVIDENCE FOR ACTIVE CARDIOPULMONARY DISEASE.
[2018-06-20 19:03] LABS: ABS Basophils 0 10^3/ul (0-0.2); ABS Eosinophils 0.1 10^3/ul (0-0.6); ABS Monocytes 0.6 10^3/ul (0-0.8); ABS Neutrophils 3.2 10^3/ul (1.5-7.7); ABS Nucleated RBC 0 10^3/ul; Eosinophil % 2.2 % (0-6); Hematocrit 43 % (35-47); Hemoglobin 15.2 g/dl (12.0-16.0); Lymphocyte % 33.4 % (25-47); Mean Corpuscular HGB Conc 35 g/dl (31-36); Mean Corpuscular Hemoglobin 32 pg (27-31); Mean Corpuscular Volume 91 fL (80-97); Nucleated Red Blood Cells % 0.1; Platelet Count 151 10^3/ul (150-450); Red Blood Count 4.69 10^6/ul (4.00-5.40); Red Cell Distribution Width 13 % (10.5-15); White Blood Count 5.9 10^3/ul (3.5-10.8)
[2018-06-20 19:27] LABS: EGFR Non-African American 81.9 (>60)
[2018-06-20] MEDS ORDERED: Potassium Chlor TAB* 20 MEQ TAB.ER PO ONE (19:40)
[2018-06-20] MEDS ORDERED: Acetaminophen TAB* 325 MG PO ONE (20:29)
[2018-06-20 21:45] VITALS: BP 123/85
== END 2018-06-20 21:43 | disposition home or self-care (01) ==
LOC: ED 18:07
DX: R07.89 Other chest pain (principal); R61 Generalized hyperhidrosis; R11.0 Nausea; I10 Essential (primary) hypertension; K21.9 Gastro-esophageal reflux disease without esophagitis; K44.9 Diaphragmatic hernia without obstruction or gangrene; Z87.440 Personal history of urinary (tract) infections; Z88.1 Allergy status to other antibiotic agents; Z91.040 Latex allergy status; Z88.5 Allergy status to narcotic agent; Z88.0 Allergy status to penicillin; Z88.8 Allergy status to other drugs, medicaments and biological substances; Z91.048 Other nonmedicinal substance allergy status; Z87.891 Personal history of nicotine dependence
CPT/HCPCS: 36415; 71046; 80053; 83605; 84484; 84702; 85025; 85379; 93005; 99283; A9270-GY

== ENCOUNTER 2018-08-21 15:01 | Emergency (ER) | payer OTHER ==
[2018-08-21 15:07] VITALS: BP 129/95
== END 2018-08-21 16:38 | disposition left against medical advice (07) ==
LOC: ED 15:01
DX: S09.90XA Unspecified injury of head, initial encounter (principal); W19.XXXA Unspecified fall, initial encounter; Z53.21 Procedure and treatment not carried out due to patient leaving prior to being seen by health care provider

== ENCOUNTER 2019-07-02 19:24 | Emergency (ER) | payer OTHER ==
--- OUTSIDE RECORDS SUMMARY | 2019-07-02 19:37 | XMS REPORT | Continuity of Care Document ---
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 Aviva Castorena, Primary Care Physician Unavailable Payers Date Identification Numbers Payment Provider Subscriber Policy Number: [id number] [employer] Jackie Blackwell PayID: [id number] [address] [place] [address] Problems Active Problems Provider Date Cramp in lower leg Onset: 01/15/2016 Headache Onset: 04/08/2015 Common variable agammaglobulinemia Vitor Kent MD Onset: 12/08/2018 Systemic lupus erythematosus Vitor Kent MD Onset: 12/08/2018 Family History Date Family Member(s) Observation Comments General No Current Problems Social History Type Date Description Comments Sex Unknown Home Environment Does not have an air conditioner Home Environment The floors are carpeted Home Environment The floors are wood Home Environment Uses kerosene heating Tobacco Use Start: Unknown Home is not smoke-free Pets 1 dog Tobacco Use Start: Unknown End: Unknown Quit Tobacco Use Start: Unknown End: Unknown Patient is a former smoker Smoking Status Reviewed: 02/21/19 Patient is a former smoker Allergies, Adverse Reactions, Alerts Active Allergies Reaction Severity Comments Date Clarithromycin 12/06/2018 Clindamycin 12/06/2018 Ketorolac Tromethamine 12/06/2018 Latex 12/06/2018 Penicillin 12/06/2018 Medications Active Medications SIG Qnty Indications Ordering Date Provider Cyanocobalamin sq once weekly; 75units Darlene, 1000mcg/ML please provide MD Don 9 Solution appropriate needle and syringes for injection Tizanidine HCL take one tablet 30tabs D64.9 Darlene, 2mg Tablets at bedtime as MD Don 9 needed for spasms Aspirin 1 po qd Unknown 81mg Tablets 0 Omeprazole 1 po qd 30caps Unknown 40mg Capsules DR 0 Cetirizine HCL 1 po qd 30tabs Unknown 10mg Tablets 0 Hydrochlorothiazide 1/2 day 30tabs Unknown 25mg 0 Tablets Metoprolol Succinate ER 1 po qd 30tabs Unknown 25mg 0 Tablets ER 24HR Excedrin Migraine prn Unknown [phone] [phone] Tablets Buspirone HCL Unknown 15mg Tablets 0 Ranitidine HCL take 1 tab by Unknown 75mg Tablets mouth twice 0 daily. Potassium Chloride Floridalma Unknown ER 0 20Meq Tablets ER History Medications Oxycodone HCL 1 - 2 tabs by mouth 30caps Unknown 01/30/2018 - 5mg Capsules every 4 -6 hours as 12/08/2018 needed pain Zonisamide take two capsules 60caps Unknown 11/15/2016 - 100mg Capsules by mouth at bedtime 12/08/2018 (pt. states she is taking 150 mg) Hydroxychloroquine Sulfate 1 po bid (not 60tabs Unknown - 200mg taking, itching, 12/08/2018 Tablets cold) Dicyclomine HCL prn Unknown - 10mg Capsules 06/08/2019 Medications Administered in Office Medication SIG Qnty Indications Ordering Provider Date Injection Gamunex IV Vitor Kent MD 05/18/2019 Nonlyophilized 500 MG Injection Injection Gamunex IV Infusion 05/18/2019 Nonlyophilized 500 MG Injection IV Infusion For Infusion 05/18/2019 Therapy,Prophylaxis Or Diagnosis Additional Hour Injection IV Infusion For Vitor Kent MD 05/18/2019 Therapy,Prophylaxis Or Diagnosis Init Up To 1 HR Injection IV Infusion For Vitor Kent MD 05/18/2019 Therapy,Prophylaxis Or Diagnosis Init Up To 1 HR Injection IV Infusion For Infusion 05/18/2019 Therapy,Prophylaxis Or Diagnosis Init Up To 1 HR Injection Injection Gamunex IV Vitor Kent MD 04/20/2019 Nonlyophilized 500 MG Injection Injection Gamunex IV Infusion 04/20/2019 Nonlyophilized 500 MG Injection IV Infusion For Vitor Kent MD 04/20/2019 Therapy,Prophylaxis Or Diagnosis Additional Hour Injection IV Infusion For Infusion 04/20/2019 Therapy,Prophylaxis Or Diagnosis Additional Hour Injection IV Infusion For Vitor Kent MD 04/20/2019 Therapy,Prophylaxis Or Diagnosis Init Up To 1 HR Injection IV Infusion For Infusion 04/20/2019 Therapy,Prophylaxis Or Diagnosis Init Up To 1 HR Injection Immunizations CPT Code Status Date Vaccine Lot # [id number] Given 12/08/2018 Pneumococcal Vaccine 2Yrs Or Older [id number] Vital Signs Date Vital Result Comment 06/08/2019 12:55pm BP Systolic 128 mmHg BP Diastolic 93 mmHg Height 61 inches 5'1" Weight 197.00 lb BMI (Body Mass Index) 37.2 kg/m2 Heart Rate 84 /min Respiratory Rate 16 /min O2 % BldC Oximetry 97 % 05/18/2019 10:52am BP Systolic 138 mmHg BP Diastolic 83 mmHg Height 61 inches 5'1" Weight 199.50 lb BMI (Body Mass Index) 37.7 kg/m2 Heart Rate 84 /min Respiratory Rate 22 /min Body Temperature 98.4 F O2 % BldC Oximetry 93 % 04/20/2019 10:31am BP Systolic 123 mmHg BP Diastolic 90 mmHg Height 61 inches 5'1" Weight 201.00 lb BMI (Body Mass Index) 38.0 kg/m2 Heart Rate 73 /min Respiratory Rate 18 /min Body Temperature 98.2 F O2 % BldC Oximetry 95 % 04/20/2019 9:50am Height 61 inches 5'1" Weight 201.00 lb BMI (Body Mass Index) 38.0 kg/m2 02/21/2019 11:29am BP Systolic 116 mmHg BP Diastolic 78 mmHg Height 61 inches 5'1" Weight 204.00 lb BMI (Body Mass Index) 38.5 kg/m2 Heart Rate 78 /min Respiratory Rate 18 /min Body Temperature 97.7 F O2 % BldC Oximetry 97 % 12/08/2018 10:37am BP Systolic 138 mmHg BP Diastolic 96 mmHg Height 61 inches 5'1" Weight 203.00 lb BMI (Body Mass Index) 38.4 kg/m2 Heart Rate 72 /min Respiratory Rate 20 /min O2 % BldC Oximetry 93 % 11/30/2018 3:45pm Height 61 inches Weight 205.00 lb BMI (Body Mass Index) 38.7 kg/m2 Heart Rate 91 /min Respiratory Rate 14 /min 10/25/2018 2:19pm Height 61 inches Weight 203.00 lb BMI (Body Mass Index) 38.4 kg/m2 Heart Rate 84 /min Respiratory Rate 14 /min 03/28/2018 8:08am Height 61 inches Heart Rate 72 /min Respiratory Rate 12 /min Body Temperature 98.5 F Results Test Date Facility Test Result H/L Range Note Immunoglobulins 05/18/2019 [facility] Immunoglobulin A 195 mg/dL N 81-693 [phone] Immunoglobulin G 812 mg/dL N 104-3097 Immunoglobulin M 79 mg/dL N 48-271 Hepatic Function 05/18/2019 [facility] Protein, Total 6.7 g/dL N 6.1-8.1 Panel [phone] Albumin 4.2 g/dL N 3.6-5.1 Globulin 2.5 g/dL(calc) N 1.9-3.7 Albumin/Globulin Ratio 1.7 (calc) N 1.0-2.5 Bilirubin, Total 0.5 mg/dL N 0.2-1.2 Bilirubin, Direct 0.1 mg/dL N < Or=0.2 Bilirubin, Indirect 0.4 mg/dL(calc) N 0.2-1.2 Alkaline Phosphatase 80 U/L N 33-115 Ast 17 U/L N 10-30 Alt 10 U/L N 6-29 Laboratory test 05/18/2019 [facility] Enhanced PDF Report SEE IMAGE finding [phone] [id number] Laboratory test 10/25/2018 N2N/CCD Import Cynthia Pattern: Dense Fine 1 finding Speck <See Note> Cynthia Titer: 1:320 Angiotensin Converting Enzyme 44 U/L 8-53 2 Anti Double Stranded Dna AB <12.3 Iu/ml 3 C Reactive Protein 12.12 mg/L High 4 Celiac Gene Interpretation See Comment 5 Celiac Gene Pairs Present? Equivocal Celiac Interpretation See Comment 6 Complement C3 158 mg/dL 75-175 7 Complement C4 34 mg/dL 14-40 8 Erythrocyte Sed Rate 20 mm/Hr High 0-14 9 Ferritin 6.0 ng/mL Low 11-307 10 Free T4 (Free Thyroxine) 1.00 ng/dL 0.61-1.12 11 Hla B27 Negative 12 Hla B27 Interp See Comment 13 [id number]-[id number] See Below 14 Hla-Dqa1 See Below 15 Immunoglobulin A 231 mg/dL 61-356 Immunoglobulin G 721 mg/dL Abnormal 767-1590 16 Immunoglobulin M 83 mg/dL 37-286 Nuclear Ab (Cynthia) by Ifa, IgG Positive 1:320 Abnormal 17 Rheumatoid Factor < 10 Iu/ml 18 T3 Free 3.40 pg/mL 2.5-3.9 19 Thyroperoxidase AB 1.65 IU/mL 20 Tissue Transglutaminase IgA Ab <1.2 U/mL 21 Vitamin D Total 25(Oh) 25.4 ng/mL 20-50 22 Anca AB Ser If 10/25/2018 N2N/CCD Import C-Anca Negative P-Anca Negative 23 Cardiolipin Igg/Igm 10/25/2018 N2N/CCD Import Phospholipid Ab IgG < 9.4 GPL 24 Phospholipid Ab IgM, S < 9.4 MPL 25 Iron & Iron Binding 10/25/2018 N2N/CCD Import % Iron Saturation 16 % 15- 55 Capacity Iron 80 g/dL 50-212 Total Iron Binding Capacity 494 g/dL High 250-450 Transferrin 353 mg/dL 203-362 Unsaturated Iron Binding < 479 ug/dL Vitamin B12 And 10/25/2018 N2N/CCD Import Folic Acid (Folate) 8.95 ng/mL 26 Folate Serum Vitamin B12 160 pg/mL Low 180-914 27 Laboratory test finding 11/02/2016 N2N/CCD Import Albumin 4.1 g/dL 3.2- 5.2 Albumin/Globulin Ratio 1.7 1 1-3 Alkaline Phosphatase 54 U/L 34-104 Alt 18 U/L 7-52 Anion Gap 7 mmol/L 2-11 Ast 20 U/L 13-39 BUN/Creatinine Ratio 10.0 1 8-20 Blood Urea Nitrogen 8 mg/dL 6-24 C Reactive Protein 1.22 mg/L 28 Calcium 9.3 mg/dL 8.6-10.3 Chloride 103 mmol/L 101-111 Co2 Carbon Dioxide 27 mmol/L 22-32 Creatinine 0.80 mg/dL 0.51-0.95 Egfr 105.0 1 29 Egfr Non- 81.6 1 Globulin 2.4 g/dL 2-4 Glucose 81 mg/dL 70-100 Potassium 3.8 mmol/L 3.5-5 Sodium 137 mmol/L 133-145 Total Bilirubin 0.90 mg/dL 0.2-1 Total Protein 6.5 g/dL 6.4-8.9 CBC Auto Diff 11/02/2016 N2N/CCD Import Abs Basophils 0 10^3/uL 0-0.2 Abs Eosinophils 0.1 10^3/uL 0-0.6 Abs Lymphocytes 1.4 10^3/uL 1-4.8 Abs Monocytes 0.5 10^3/uL 0-0.8 Abs Neutrophils 2.7 10^3/uL 1.5-7.7 Abs Nucleated RBC 0 10^3/uL Basophil % 0.8 % 0-2 Eosinophil % 2.3 % 0-6 Granulocyte % 57.1 % 38-83 Hematocrit 41 % 35-47 Hemoglobin 14.4 g/dL 12-16 Lymphocyte % 29.7 % 25-47 Mean Corpuscular HGB Conc 35 g/dL 31-36 Mean Corpuscular Hemoglobin 32 pg High 27-31 Mean Corpuscular Volume 91 fL 80-97 Mean Platelet Volume 9 um3 7.4-10.4 Monocyte % 10.1 % High 1-9 Nucleated Red Blood Cells % 0.1 1 Platelet Count 147 10^3/uL Low 150-450 Red Blood Count 4.52 10^6/uL 4-5.4 Red Cell Distribution Width 13 % 10.5-15 White Blood Count 4.7 10^3/uL 3.5-10.8 Laboratory test finding 01/17/2016 N2N/CCD Import Albumin 4.1 g/dL 3.2- 5.2 Albumin/Globulin Ratio 2.0 1 1-3 Alkaline Phosphatase 55 U/L 34-104 Alt 23 U/L 7-52 Anion Gap 5 mmol/L 2-11 Ast 26 U/L 13-39 BUN/Creatinine Ratio 10.1 1 8-20 Blood Urea Nitrogen 9 mg/dL 6-24 Calcium 9.2 mg/dL 8.6-10.3 Chloride 106 mmol/L 101-111 Co2 Carbon Dioxide 26 mmol/L 22-32 Creatinine 0.89 mg/dL 0.51-0.95 Egfr 93.4 1 30 Egfr Non- 72.6 1 Globulin 2.1 g/dL 2-4 Glucose 97 mg/dL 70-100 Potassium 4.0 mmol/L 3.5-5 Sodium 137 mmol/L 133-145 Total Bilirubin 0.90 mg/dL 0.2-1 Total Protein 6.2 g/dL Low 6.4-8.9 1 Dense Fine Speckled Test Performed by: [place] [address] 2 Test Performed by: [place] [address] 3 REFERENCE VALUE <30.0 (Negative) Test Performed by: [facility] [address] [place] [address] 4 Please check labs this week 5 While the patient lacks the gene pairs usually seen in celiac disease, there are rare exceptions in which celiac disease can occur with only one half of the gene pair (1% of all celiac) making celiac disease very unlikely. However, these genes can also be present in the normal population. ADDITIONAL INFORMATION Method: Molecular typing of HLA antigens performed using reverse SSOP and/or SSP methods, reported as serological equivalents and low to medium resolution molecular values. Performing Laboratory CLIA# [id number] Test Performed by: [place] [address] 6 Negative serology. Celiac disease unlikely. However, approximately 10% of patients with celiac disease are seronegative. Also, patients who are already adhering to a gluten-free diet may be seronegative. If celiac disease is highly clinically suspected, consider HLA-DQ typing. Test Performed by: [place] [id number] Test Performed by: [place] [address] 8 Test Performed by: [place] [address] 9 Please check labs this week 10 Please check labs this week 11 Please check labs this week 12 REFERENCE VALUE Not Applicable 13 RESULT: HLA-B27 antigen was not detected. ADDITIONAL INFORMATION Method: Flow Cytometry Performing Laboratory CLIA# [id number] Test Performed by: [place] [address] 14 RESULT: 02:02,06:03 DQ Serologic Equivalent: 2,6 REFERENCE VALUE Not Applicable 15 RESULT: 01:03,02:01 REFERENCE VALUE Not Applicable 16 Test Performed by: [facility] - [place] [id number] REFERENCE VALUE <1:80 (Negative) 18 Please check labs this week 19 Please check labs this week 20 Please check labs this week 21 REFERENCE VALUE <4.0 (Negative) Test Performed by: [place] [id number] Please check labs this week 23 Negative for cANCA and pANCA patterns by immunofluorescence. ADDITIONAL INFORMATION This test was developed and its performance characteristics determined by [facility] in a manner consistent with CLIA requirements. This test has not been cleared or approved by the U.S. Food and Drug Administration. Test Performed by: [facility] - [facility] [address] [place] [address] 24 REFERENCE VALUE <15.0 (Negative) Test Performed by: [facility] - [facility] [address] , [place] [address] 25 REFERENCE VALUE <15.0 (Negative) 26 Please check labs this week 27 Normal Range 180 to 914 Indeterminate Range 145 to 180 Deficient Range <145 28 Acute inflammation: >10.00 29 Because ethnic data is not always readily [...] 15-29 5 Kidney failure <15 (or dialysis) 30 Because ethnic data is not always readily [...] 15-29 5 Kidney failure <15 (or dialysis) Procedures Date Code Description Status 05/18/2019 85449 IV Infusion For Therapy,Prophylaxis Or Diagnosis Completed Additional Hour 05/18/2019 54131 IV Infusion For Therapy,Prophylaxis Or Diagnosis Init Up Completed To 1 HR 05/18/2019 88177 IV Infusion For Therapy,Prophylaxis Or Diagnosis Init Up Completed To 1 HR 05/18/2019 19478 IV Infusion For Therapy,Prophylaxis Or Diagnosis Init Up Completed To 1 HR 04/20/2019 99556 IV Infusion For Therapy,Prophylaxis Or Diagnosis Completed Additional Hour 04/20/2019 60038 IV Infusion For Therapy,Prophylaxis Or Diagnosis Completed Additional Hour 04/20/2019 14427 IV Infusion For Therapy,Prophylaxis Or Diagnosis Init Up Completed To 1 HR 04/20/2019 49286 IV Infusion For Therapy,Prophylaxis Or Diagnosis Init Up Completed To 1 HR Encounters Type Date Location Provider Dx Diagnosis Office Visit 06/08/2019 Louie Contreras NP 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 Patient will continue with ibuprofen prednisone pre treatment. We would reevaluate after these adjustments have been made to see how the patient is tolerating the therapy adjustments.Greater than 50% of the 15-minute visit was spent in discussion of the testing results and treatment options.
--- OUTSIDE RECORDS SUMMARY | 2019-07-02 19:37 | XMS REPORT | Continuity of Care Document ---
:1980 External Reference #:[id number] Author Name LanTessie marquez Care Team Providers Name Role Phone Aviva Castorena FNP Primary Care Physician Unavailable Payers Date Identification Numbers Payment Provider Subscriber Effective: 2006 Policy Number: [id number] [employer] Jackie Blackwell PayID: [id number] [address] [address] [place] [address] Problems Active Problems Provider Date Headache Juani Thompson M.D. Onset: 04/08/2015 Cramp in lower leg Juani Thompson M.D. Onset: 01/15/2016 B12 injections - at home Taylor Portillo NP Onset: 12/11/2018 Systemic lupus erythematosus Taylor Portillo NP Onset: 05/07/2019 Sarcoidosis Taylor Portillo NP Onset: 05/07/2019 Gastroesophageal reflux disease Taylor Portilol NP Onset: 05/07/2019 Diarrhea Taylor Portillo NP Onset: 05/07/2019 Resolved Problems Serum vitamin B12 low Taylor Portillo NP Onset: 12/11/2018 Resolved: 05/13/2019 Family History Date Family Member(s) Observation Comments General Diabetes General Heart Disease General Hypertension General Cancer General Rheumatoid Arthritis General Kidney Disease General Hemochromatosis family history Father Heart Disease Mother Lung Cancer Social History Type Date Description Comments Sex Unknown Marital Status Lives With Occupation Disabled Tobacco Use Start: Unknown Former Cigarette Smoker End: Unknown Smoking Status Reviewed: 06/15/19 Former Cigarette Smoker ETOH Use Rarely consumes alcohol Tobacco Use Start: Unknown Patient is a former Pt. uses marijuana End: Unknown smoker to help with sleep Recreational Drug Use Current Drug User marijuana to help with sleep Exercise Type/Frequency Exercises sporadically Allergies, Adverse Reactions, Alerts Active Allergies Reaction Severity Comments Date Clindamycin rash, n/v 12/07/2012 Penicillin rash (child) 12/07/2012 Biaxin upset stomach, n/v 12/07/2012 Latex rash, itchy 05/13/2017 Adhesive Tape 05/13/2017 Ketorolac Tromethamine 10/25/2018 Medications Active Medications SIG Qnty Indications Ordering Date Provider Compression Stockings please fit to 2units [place] Misc comfort for thigh Miri Colon 9 high stockings to help intermittent edema as needed Magnesium take one 60tabs [place] 500mg Tablets capsule/tablet Miri Colon 9 daily by mouth Ranitidine 150 Maximum 1-2 tablets at 30tabs Kishor Lopez Strength hour of sleep as MD Francisco 9 150mg Tablets directed (pt not taking because caused stomach aches) Enteragam as directed Taylor Portillo 5gm Packet SHIFT MANAGER 9 Potassium Chloride [place] take one 30tabs [place] ER capsule/tablet Miri Colon 9 20Meq Tablets ER daily by mouth Benlysta Other 400mg Solution Rec Ordering 9 Provider Cyanocobalamin sq once weekly; 75ml [place] 1000mcg/ML please provide Miri Colon Solution appropriate needle and syringes for injection Tizanidine HCL take one tablet by 30tabs D64.9 [place] 2mg Tablets mouth at bedtime Miri Colon 9 as needed for spasms BD 1ML for use with b12 42units [place] Syringe/Safetyglide injections Miri Colon 9 Shielding Needle 25G X 5/8" 25G X 5/8" 1 ML Misc Buspirone HCL once a day Unknown 15mg Tablets 0 Excedrin Migraine prn Unknown [phone] Tablets Metoprolol Succinate ER 1 po qd 30tabs Unknown 25mg 0 Tablets ER 24HR Hydrochlorothiazide 1/2 day 30tabs Unknown 25mg 0 Tablets Cetirizine HCL 1 po qd 30tabs Unknown 10mg Tablets 0 Omeprazole 1 po qd 30caps Unknown 40mg Capsules DR 0 Aspirin 1 po qd Unknown 81mg Tablets 0 History Medications Potassium Chloride [place] take one 10tabs Don 01/08/2019 - ER capsule/tablet daily Miri Colon 04/02/2019 10Meq Tablets ER by mouth Ranitidine 150 Maximum one by mouth daily 30tabs Kishor Lopez 01/03/2019 - Seble Singh MD 05/04/2019 150mg Tablets Oxycodone HCL 1 - 2 tabs by mouth 30caps Deven 01/30/2018 - 5mg Capsules every 4 -6 hours as Miri Lopez 12/05/2018 needed pain Zonisamide take two capsules by 60caps Martha Norman 11/15/2016 - 100mg Capsules mouth at bedtime (pt. 12/05/2018 states she is taking 150 mg) Sumatriptan Succinate take 1 tablet by 12tabs Juani Gage 02/02/2016 - 50mg mouth every 2 hours Jay 11/01/2016 Tablets as directed for M.D. headache Relpax take 1 by mouth as 12tabs Juani Gage 01/23/2016 - 40mg Tablets needed for headache, Jay, 11/01/2016 may repeat after 2 M.D. hours, maximum two tablets a day, maximum 2 days a week Zonisamide 3 tabs by mouth every 90caps Juani Gage 08/14/2015 - 50mg Capsules night at bedtime Jay 11/15/2016 Miri Pamelor 5 caps by mouth every 150caps Juani Gage 12/11/2012 - 10mg Capsules night as directed Jay 08/14/2015 M.DAnais Gabapentin 1 tab by mouth twice 120tabs Juani Gage 12/07/2012 - 600mg Tablets a day and 2 tabs po Jay, 04/07/2015 qhs M.D. Dicyclomine HCL prn Unknown - 10mg Capsules 05/07/2019 Naratriptan HCL prn Unknown - 1mg Tablets 10/25/2018 Baclofen 1/2 tab po bid 30tabs Meir - 10mg Tablets 11/01/2016 Morphine Sulfate ER 1 po bid Unknown - 15mg 11/01/2016 Tablets ER Morphine Sulfate 1 po bid 20tabs Unknown - 15mg Tablets 11/01/2016 Fluoxetine 1 po qd 90caps Unknown - 30mg Capsules 06/15/2019 Hydroxychloroquine 1 po bid (not taking, 60tabs Unknown - Sulfate itching, cold) 12/08/2018 200mg Tablets Nicotine Transdermal apply patch daily qs Unknown - System 05/28/2014 21-14-7mg/24HR Kit Celebrex 1 po bid Unknown - 200mg Capsules 04/07/2015 Tizanidine HCL 1 tab four times a Unknown - 4mg Capsules day. 05/28/2014 Neurontin 1 to two tabs hs Juani M. - Jay, 12/07/2012 Miri Nortriptyline 2tabs po q hs 60units Juani M. - 10mg Jay, 03/08/2013 Miri Carisoprodol 1 tab po tid/prn 30tabs Unknown - 350mg Tablets 06/08/2013 Plaquenil 1 po bid 180tabs Unknown - 200mg Tablets 12/14/2013 Fluooxetine 3 tabs po qam Unknown - 10mg 12/14/2013 Medications Administered in Office Medication SIG Qnty Indications Ordering Provider Date B-12 Injection Don Colon M.D. 11/30/2018 Injection Vital Signs Date Vital Result Comment 06/15/2019 11:56am Height 61 inches 5'1" Weight 193.00 lb Heart Rate 72 /min BP Systolic Sitting 118 mmHg BP Diastolic Sitting 80 mmHg Pain Level 4 O2 % BldC Oximetry 96 % BMI (Body Mass Index) 36.5 kg/m2 05/07/2019 11:30am Weight 203.00 lb Heart Rate 82 /min BP Systolic 116 mmHg BP Diastolic 75 mmHg O2 % BldC Oximetry 95 % 03/06/2019 9:12am Weight 208.00 lb Heart Rate 72 /min BP Systolic 130 mmHg BP Diastolic 80 mmHg Respiratory Rate 16 /min Body Temperature 98.0 F 02/01/2019 11:25am Height 61 inches 5'1" Weight 208.12 lb Heart Rate 84 /min BP Systolic 135 mmHg BP Diastolic 88 mmHg Respiratory Rate 20 /min Body Temperature 96.6 F O2 % BldC Oximetry 92 % BMI (Body Mass Index) 39.3 kg/m2 01/08/2019 3:19pm Height 61 inches 5'1" Weight 209.00 lb Heart Rate 60 /min BP Systolic Sitting 128 mmHg BP Diastolic Sitting 82 mmHg Pain Level 4 O2 % BldC Oximetry 98 % BMI (Body Mass Index) 39.5 kg/m2 12/11/2018 9:07am Height 61 inches 5'1" Weight 209.50 lb Heart Rate 70 /min BP Systolic 121 mmHg BP Diastolic 84 mmHg Respiratory Rate 18 /min Body Temperature 97.2 F O2 % BldC Oximetry 93 % BMI (Body Mass Index) 39.6 kg/m2 11/30/2018 3:45pm Height 61 inches 5'1" Weight 205.00 lb Heart Rate 91 /min BP Systolic Sitting 114 mmHg BP Diastolic Sitting 77 mmHg Respiratory Rate 14 /min Pain Level 6 BMI (Body Mass Index) 38.7 kg/m2 10/25/2018 2:19pm Height 61 inches 5'1" Weight 203.00 lb Heart Rate 84 /min BP Systolic Sitting 100 mmHg BP Diastolic Sitting 70 mmHg Respiratory Rate 14 /min Pain Level 6 BMI (Body Mass Index) 38.4 kg/m2 03/28/2018 8:08am Height 61 inches 5'1" Heart Rate 72 /min Respiratory Rate 12 /min Body Temperature 98.5 F Pain Level 2 02/09/2018 11:23am Height 61 inches 5'1" Weight 190.00 lb Respiratory Rate 14 /min Pain Level 4 BMI (Body Mass Index) 35.9 kg/m2 01/12/2018 10:57am Height 61 inches 5'1" Weight 190.00 lb Heart Rate 86 /min Respiratory Rate 14 /min Body Temperature 96.9 F Pain Level 5 BMI (Body Mass Index) 35.9 kg/m2 12/15/2017 9:50am Heart Rate 74 /min BP Systolic Sitting 124 mmHg BP Diastolic Sitting 86 mmHg Body Temperature 98.8 F 08/30/2017 10:19am Height 61 inches 5'1" Weight 202.00 lb Body Temperature 98.2 F Pain Level 5 BMI (Body Mass Index) 38.2 kg/m2 07/05/2017 11:32am Height 61 inches 5'1" Weight 202.00 lb Heart Rate 71 /min BP Systolic 120 mmHg BP Diastolic 77 mmHg Body Temperature 97.1 F BMI (Body Mass Index) 38.2 kg/m2 06/14/2017 11:59am Height 61 inches 5'1" Weight 202.00 lb BP Systolic 128 mmHg BP Diastolic 72 mmHg Respiratory Rate 17 /min Pain Level 7 BMI (Body Mass Index) 38.2 kg/m2 05/26/2017 8:25am Height 61 inches 5'1" Weight 202.00 lb BP Systolic 117 mmHg BP Diastolic 82 mmHg Body Temperature 97.6 F Pain Level 4 BMI (Body Mass Index) 38.2 kg/m2 05/13/2017 1:04pm Height 61 inches 5'1" Weight 202.00 lb Heart Rate 67 /min BP Systolic 119 mmHg BP Diastolic 87 mmHg Respiratory Rate 16 /min Body Temperature 98.5 F Pain Level 5 BMI (Body Mass Index) 38.2 kg/m2 05/03/2017 10:52am Height 61 inches 5'1" Weight 202.50 lb Heart Rate 77 /min BP Systolic Sitting 116 mmHg BP Diastolic Sitting 78 mmHg Respiratory Rate 14 /min BMI (Body Mass Index) 38.3 kg/m2 11/02/2016 8:36am Height 61 inches 5'1" Weight 204.00 lb Heart Rate 76 /min BP Systolic Sitting 106 mmHg BP Diastolic Sitting 64 mmHg Respiratory Rate 16 /min BMI (Body Mass Index) 38.5 kg/m2 01/15/2016 9:58am Height 61 inches 5'1" Heart Rate 68 /min BP Systolic Sitting 118 mmHg BP Diastolic Sitting 74 mmHg Respiratory Rate 16 /min 04/08/2015 9:52am Height 61 inches 5'1" Weight 206.00 lb Heart Rate 76 /min BP Systolic Sitting 132 mmHg BP Diastolic Sitting 74 mmHg Respiratory Rate 16 /min BMI (Body Mass Index) 38.9 kg/m2 10/31/2014 10:34am Height 61 inches 5'1" Weight 207.00 lb Heart Rate 72 /min BP Systolic Sitting 124 mmHg BP Diastolic Sitting 82 mmHg Respiratory Rate 16 /min BMI (Body Mass Index) 39.1 kg/m2 06/06/2014 10:13am Height 61 inches 5'1" Weight 213.00 lb Heart Rate 88 /min BP Systolic Sitting 116 mmHg BP Diastolic Sitting 84 mmHg Respiratory Rate 16 /min BMI (Body Mass Index) 40.2 kg/m2 12/14/2013 8:49am Heart Rate 80 /min BP Systolic Sitting 110 mmHg BP Diastolic Sitting 70 mmHg Respiratory Rate 16 /min 06/08/2013 10:32am Height 61 inches 5'1" Weight 190.00 lb Heart Rate 88 /min BP Systolic Sitting 118 mmHg BP Diastolic Sitting 82 mmHg Respiratory Rate 16 /min BMI (Body Mass Index) 35.9 kg/m2 03/08/2013 10:36am Heart Rate 94 /min BP Systolic Sitting 138 mmHg BP Diastolic Sitting 92 mmHg Respiratory Rate 16 /min 12/07/2012 11:31am Heart Rate 80 /min BP Systolic Sitting 128 mmHg BP Diastolic Sitting 82 mmHg Respiratory Rate 19 /min 12/07/2012 11:26am Heart Rate 80 /min BP Systolic 128 mmHg BP Diastolic 82 mmHg Respiratory Rate 19 /min Results Test Date Facility Test Result H/L Range Note Laboratory test 05/25/2019 [facility] Erythrocyte Sed 24 mm/Hr High 0-[address] [place] [address] [phone] Comp Metabolic 05/25/2019 [facility] Sodium 139 mmol/L N 135- [address] [place] [address] [phone] Potassium 2.9 mmol/L Low 3.5-5.0 Chloride 105 mmol/L N 101-111 Co2 Carbon Dioxide 27 mmol/L N 22-32 Anion Gap 7 mmol/L N 2-11 Glucose 104 mg/dL High 70-100 Blood Urea Nitrogen 10 mg/dL N 6-24 Creatinine 0.61 mg/dL N 0.51-0.95 BUN/Creatinine Ratio 16.4 N 8-20 Calcium 9.6 mg/dL N 8.6-10.3 Total Protein 7.3 g/dL N 6.4-8.9 Albumin 4.0 g/dL N 3.2-5.2 Globulin 3.3 g/dL N 2-4 Albumin/Globulin Ratio 1.2 N 1-3 Total Bilirubin 0.40 mg/dL N 0.2-1.0 Alkaline Phosphatase 73 U/L N 34-104 Alt 13 U/L N 7-52 Ast 18 U/L N 13-39 Egfr Non- 109.8 >60 Egfr 132.8 >60 1 Laboratory test 05/25/2019 [facility] C Reactive 10.77 mg/L High <8.[address] [place] [address] [phone] CBC Auto Diff 05/25/2019 [facility] White Blood 5.9 N 3.5- 10.[address] Count 10^3/[place] [address] [phone] Red Blood Count 4.78 10^6/uL N 3.70-4.87 Hemoglobin 14.8 g/dL N 12.0-16.0 Hematocrit 43 % N 35-47 Mean Corpuscular Volume 89 fL N 80-97 Mean Corpuscular Hemoglobin 31 pg N 27-31 Mean Corpuscular HGB Conc 35 g/dL N 31-36 Red Cell Distribution Width 15 % N 10-15 Platelet Count 190 10^3/uL N 150-450 Mean Platelet Volume 8.9 fL N 7.4-10.4 Abs Neutrophils 3.9 10^3/uL N 1.5-7.7 Abs Lymphocytes 1.5 10^3/uL N 1.0-4.8 Abs Monocytes 0.4 10^3/uL N 0-0.8 Abs Eosinophils 0.0 10^3/uL N 0-0.6 Abs Basophils 0.0 10^3/uL N 0-0.2 Abs Nucleated RBC 0.0 10^3/uL Granulocyte % 66.3 % Lymphocyte % 25.2 % Monocyte % 7.4 % Eosinophil % 0.7 % Basophil % 0.4 % Nucleated Red Blood Cells % 0.1 Urinalysis Profile 04/24/2019 [facility] Urine Color Yellow [address] [place] [address] [phone] Urine Appearance Cloudy Urine Specific [place] 1.014 N 1.010-1.030 Urine pH 5.0 N 5-9 Urine Urobilinogen Negative Negative Urine Ketones Negative Negative Urine Protein Negative Negative Urine Leukocytes Negative Negative Urine Blood Negative Negative Urine Nitrite Negative Negative Urine Bilirubin Negative Negative Urine Glucose Negative Negative Laboratory test 04/24/2019 [facility] Erythrocyte Sed 30 mm/Hr High 0-[address] [place] [address] [phone] CBC Auto Diff 04/24/2019 [facility] White Blood 3.9 N 3.5- 10.[address] Count 10^3/[place] [address] [phone] Red Blood Count 4.52 10^6/uL N 3.70-4.87 Hemoglobin 14.0 g/dL N 12.0-16.0 Hematocrit 41 % N 35-47 Mean Corpuscular Volume 90 fL N 80-97 Mean Corpuscular Hemoglobin 31 pg N 27-31 Mean Corpuscular HGB Conc 34 g/dL N 31-36 Red Cell Distribution Width 16 % High 10.5-15 Platelet Count 171 10^3/uL N 150-450 Mean Platelet Volume 8.5 fL N 7.4-10.4 Abs Neutrophils 2.0 10^3/uL N 1.5-7.7 Abs Lymphocytes 1.4 10^3/uL N 1.0-4.8 Abs Monocytes 0.3 10^3/uL N 0-0.8 Abs Eosinophils 0.2 10^3/uL N 0-0.6 Abs Basophils 0.0 10^3/uL N 0-0.2 Abs Nucleated RBC 0.0 10^3/uL Granulocyte % 51.1 % Lymphocyte % 36.3 % Monocyte % 7.6 % Eosinophil % 3.8 % Basophil % 1.2 % Nucleated Red Blood Cells % 0.3 Laboratory test 04/24/2019 [facility] C Reactive 10.00 mg/L High <8.[address] [place] [address] [phone] Comp Metabolic 04/24/2019 [facility] Sodium 138 mmol/L N 135- [address] [place] [address] [phone] Potassium 3.9 mmol/L N 3.5-5.0 Co2 Carbon Dioxide 20 mmol/L Low 22-32 Glucose 102 mg/dL High 70-100 Blood Urea Nitrogen 11 mg/dL N 6-24 Creatinine 0.69 mg/dL N 0.51-0.95 BUN/Creatinine Ratio 15.9 N 8-20 Calcium 8.9 mg/dL N 8.6-10.3 Total Protein 6.7 g/dL N 6.4-8.9 Albumin 3.6 g/dL N 3.2-5.2 Globulin 3.1 g/dL N 2-4 Albumin/Globulin Ratio 1.2 N 1-3 Total Bilirubin 0.20 mg/dL N 0.2-1.0 Alkaline Phosphatase 84 U/L N 34-104 Alt 10 U/L N 7-52 Ast 17 U/L N 13-39 Egfr Non- 95.2 >60 Egfr 115.2 >60 2 Chloride 115 mmol/L High 101-111 Anion Gap 3 mmol/L N 2-11 Laboratory test 04/06/2019 [facility] Vitamin B12 1445 pg/mL High 180-914 3 finding [address] [place] [address] [phone] Ferritin 10.0 ng/mL Low 11-307 Basic Metabolic Panel 04/06/2019 [facility] Sodium 138 mmol/L N 135-145 [address] [place] [address] [phone] Potassium 3.7 mmol/L N 3.5-5.0 Chloride 105 mmol/L N 101-111 Co2 Carbon Dioxide 25 mmol/L N 22-32 Anion Gap 8 mmol/L N 2-11 Glucose 98 mg/dL N 70-100 Blood Urea Nitrogen 9 mg/dL N 6-24 Creatinine 0.70 mg/dL N 0.51-0.95 BUN/Creatinine Ratio 12.9 N 8-20 Calcium 9.7 mg/dL N 8.6-10.3 Egfr Non- 93.6 >60 Egfr 113.3 >60 4 Comp Metabolic Panel 03/27/2019 [facility] Sodium 139 mmol/L N 135-145 [address] [place] [address] [phone] Potassium 3.1 mmol/L Low 3.5-5.0 Chloride 108 mmol/L N 101-111 Co2 Carbon Dioxide 25 mmol/L N 22-32 Anion Gap 6 mmol/L N 2-11 Glucose 105 mg/dL High 70-100 Blood Urea Nitrogen 14 mg/dL N 6-24 Creatinine 0.72 mg/dL N 0.51-0.95 BUN/Creatinine Ratio 19.4 N 8-20 Calcium 9.3 mg/dL N 8.6-10.3 Total Protein 6.6 g/dL N 6.4-8.9 Albumin 4.0 g/dL N 3.2-5.2 Globulin 2.6 g/dL N 2-4 Albumin/Globulin Ratio 1.5 N 1-3 Total Bilirubin 0.40 mg/dL N 0.2-1.0 Alkaline Phosphatase 80 U/L N 34-104 Alt 12 U/L N 7-52 Ast 19 U/L N 13-39 Egfr Non- 90.7 >60 Egfr 109.7 >60 5 Laboratory test 03/27/2019 [facility] C Reactive 12.21 mg/L High <8.[address] [place] [address] [phone] Urinalysis 03/27/2019 [facility] Urine Color Yellow Profile [address] [place] [address] [phone] Urine Appearance Cloudy Urine Specific [place] 1.010 N 1.010-1.030 Urine pH 6.0 N 5-9 Urine Urobilinogen Negative Negative Urine Ketones Negative Negative Urine Protein Negative Negative Urine Leukocytes Negative Negative Urine Blood Negative Negative Urine Nitrite Negative Negative Urine Bilirubin Negative Negative Urine Glucose Negative Negative CBC Auto Diff 03/27/2019 [facility] White Blood 5.0 10^3/uL N 3.5-10.[address] [place] [address] [phone] Red Blood Count 4.75 10^6/uL N 3.70-4.87 Hemoglobin 14.5 g/dL N 12.0-16.0 Hematocrit 42 % High 33-41 Mean Corpuscular Volume 88 fL N 80-97 Mean Corpuscular Hemoglobin 31 pg N 27-31 Mean Corpuscular HGB Conc 35 g/dL N 31-36 Red Cell Distribution Width 15 % N 10.5-15 Platelet Count 188 10^3/uL N 150-450 Mean Platelet Volume 8.4 fL N 7.4-10.4 Abs Neutrophils 3.1 10^3/uL N 1.5-7.7 Abs Lymphocytes 1.2 10^3/uL N 1.0-4.8 Abs Monocytes 0.4 10^3/uL N 0-0.8 Abs Eosinophils 0.1 10^3/uL N 0-0.6 Abs Basophils 0 10^3/uL N 0-0.2 Abs Nucleated RBC 0 10^3/uL Granulocyte % 62.8 % Lymphocyte % 25.2 % Monocyte % 8.4 % Eosinophil % 2.8 % Basophil % 0.8 % Nucleated Red Blood Cells % 0.1 Laboratory test 03/27/2019 [facility] Erythrocyte Sed 19 mm/Hr N 0-[address] [place] [address] [phone] Urinalysis 02/27/2019 [facility] Urine Color Yellow Profile [address] [place] [address] [phone] Urine Appearance Cloudy Urine Specific [place] 1.011 N 1.010-1.030 Urine pH 6.0 N 5-9 Urine Urobilinogen Negative Negative Urine Ketones Negative Negative Urine Protein Negative Negative Urine Leukocytes Negative Negative Urine Blood Negative Negative Urine Nitrite Negative Negative Urine Bilirubin Negative Negative Urine Glucose Negative Negative Comp Metabolic Panel 02/27/2019 [facility] Sodium 137 mmol/L N 135-[address] [place] [address] [phone] Potassium 3.3 mmol/L Low 3.5-5.0 Chloride 107 mmol/L N 101-111 Co2 Carbon Dioxide 24 mmol/L N 22-32 Anion Gap 6 mmol/L N 2-11 Glucose 95 mg/dL N 70-100 Blood Urea Nitrogen 13 mg/dL N 6-24 Creatinine 0.71 mg/dL N 0.51-0.95 BUN/Creatinine Ratio 18.3 N 8-20 Calcium 9.0 mg/dL N 8.6-10.3 Total Protein 6.6 g/dL N 6.4-8.9 Albumin 4.0 g/dL N 3.2-5.2 Globulin 2.6 g/dL N 2-4 Albumin/Globulin Ratio 1.5 N 1-3 Total Bilirubin 0.40 mg/dL N 0.2-1.0 Alkaline Phosphatase 85 U/L N 34-104 Alt 10 U/L N 7-52 Ast 15 U/L N 13-39 Egfr Non- 92.1 >60 Egfr 111.5 >60 6 Laboratory test 02/27/2019 [facility] C Reactive 10.19 mg/L High <8.[address] [place] [address] [phone] CBC Auto Diff 02/27/2019 [facility] White Blood 5.7 N 3.5- 10.[address] Count 10^3/[place] [address] [phone] Red Blood Count 4.68 10^6/uL N 3.70-4.87 Hemoglobin 14.2 g/dL N 12.0-16.0 Hematocrit 41 % N 33-41 Mean Corpuscular Volume 88 fL N 80-97 Mean Corpuscular Hemoglobin 30 pg N 27-31 Mean Corpuscular HGB Conc 35 g/dL N 31-36 Red Cell Distribution Width 16 % High 10.5-15 Platelet Count 189 10^3/uL N 150-450 Mean Platelet Volume 8.0 fL N 7.4-10.4 Abs Neutrophils 3.5 10^3/uL N 1.5-7.7 Abs Lymphocytes 1.6 10^3/uL N 1.0-4.8 Abs Monocytes 0.5 10^3/uL N 0-0.8 Abs Eosinophils 0.1 10^3/uL N 0-0.6 Abs Basophils 0 10^3/uL N 0-0.2 Abs Nucleated RBC 0 10^3/uL Granulocyte % 61.8 % Lymphocyte % 27.6 % Monocyte % 8.0 % Eosinophil % 2.1 % Basophil % 0.5 % Nucleated Red Blood Cells % 0 Laboratory test 02/27/2019 [facility] Erythrocyte Sed 20 mm/Hr N 0-20 [address] [place] [address] [phone] Laboratory test 02/01/2019 [facility] Erythrocyte Sed 18 mm/Hr N 0-20 [address] [place] [address] [phone] C Reactive Protein 6.70 mg/L N <8.01 9 CBC W/Auto 02/01/2019 [facility] White Blood 5.7 10^3/uL N 3.5 -10.[address] [place] [address] [phone] Red Blood Count 5.00 10^6/uL N 4.00-5.40 Hemoglobin 15.1 g/dL N 12.0-16.0 Hematocrit 43 % N 35-47 Mean Corpuscular Volume 87 fL N 80-97 Mean Corpuscular Hemoglobin 30 pg N 27-31 Mean Corpuscular HGB Conc 35 g/dL N 31-36 Red Cell Distribution Width 15 % N 10.5-15 Platelet Count 211 10^3/uL N 150-450 Mean Platelet Volume 8.4 fL N 7.4-10.4 Abs Neutrophils 3.3 10^3/uL N 1.5-7.7 Abs Lymphocytes 1.8 10^3/uL N 1.0-4.8 Abs Monocytes 0.5 10^3/uL N 0-0.8 Abs Eosinophils 0.1 10^3/uL N 0-0.6 Abs Basophils 0 10^3/uL N 0-0.2 Abs Nucleated RBC 0 10^3/uL Granulocyte % 57.6 % Lymphocyte % 31.9 % Monocyte % 8.1 % Eosinophil % 1.9 % Basophil % 0.5 % Nucleated Red Blood Cells % 0.1 CMP Panel 02/01/2019 [facility] Sodium 140 mmol/L N 135-145 [address] [place] [address] [phone] Potassium 3.5 mmol/L N 3.5-5.0 Chloride 103 mmol/L N 101-111 Co2 Carbon Dioxide 31 mmol/L N 22-32 Anion Gap 6 mmol/L N 2-11 Glucose 90 mg/dL N 70-100 Blood Urea Nitrogen 10 mg/dL N 6-24 Creatinine 0.67 mg/dL N 0.51-0.95 BUN/Creatinine Ratio 14.9 N 8-20 Calcium 9.7 mg/dL N 8.6-10.3 Total Protein 6.7 g/dL N 6.4-8.9 Albumin 4.3 g/dL N 3.2-5.2 Globulin 2.4 g/dL N 2-4 Albumin/Globulin Ratio 1.8 N 1-3 Total Bilirubin 0.40 mg/dL N 0.2-1.0 Alkaline Phosphatase 92 U/L N 34-104 Alt 15 U/L N 7-52 Ast 17 U/L N 13-39 Egfr Non- 98.5 >60 Egfr 119.2 >60 10 Laboratory test 02/01/2019 [facility] Ferritin 7.5 ng/mL Low 11-[address] [place] [address] [phone] Vitamin B12 647 pg/mL N 180-914 11 Laboratory test 01/08/2019 [facility] [place] Standing Orders Esr Sedimentation <pending> finding Rate CRP C-Reactive Protein <pending> CBC W/Auto Diff 01/08/2019 [facility] [place] Standing Orders White Blood Count <pending> RBC Red Blood Count <pending> Hemoglobin <pending> Hematocrit <pending> MCV (Corpuscular Volume) <pending> MCH (Corpuscular Hemoglobin) <pending> MCHC (Corpuscular Hemog Conc) <pending> RDW <pending> Platelet Count <pending> MPV <pending> Neutrophils <pending> Bands <pending> Lymphocytes <pending> Monocytes <pending> Eosinophils <pending> Basophils <pending> Absolute Basophil <pending> Absolute Eosinophil <pending> Absolute Lymphocyte <pending> Absolute Monocytes <pending> Absolute Neutrophils <pending> Laboratory test 01/08/2019 [facility] Erythrocyte Sed 19 mm/Hr High 0-[address] [place] [address] [phone] CMP Panel 01/08/2019 [facility] [place] Standing Orders Albumin <pending> Alt - SGPT <pending> Calcium <pending> Carbon Dioxide <pending> Chloride <pending> Creatinine <pending> Glucose Serum <pending> Alkaline Phosphatase <pending> Potassium <pending> Total Protein <pending> Sodium <pending> Ast - Sgot <pending> BUN - Urea Nitrogen <pending> Urinalysis Profile 01/08/2019 [facility] Urine Color Yellow [address] [place] [address] [phone] Urine Appearance Cloudy Urine Specific [place] 1.009 Low 1.010-1.030 Urine pH 5.0 N 5-9 Urine Urobilinogen Negative Negative Urine Ketones Negative Negative Urine Protein Negative Negative Urine Leukocytes Negative Negative Urine Blood Negative Negative Urine Nitrite Negative Negative Urine Bilirubin Negative Negative Urine Glucose Negative Negative Comp Metabolic Panel 01/08/2019 [facility] Sodium 139 mmol/L N 135-145 [address] [place] [address] [phone] Potassium 3.2 mmol/L Low 3.5-5.0 Chloride 106 mmol/L N 101-111 Co2 Carbon Dioxide 27 mmol/L N 22-32 Anion Gap 6 mmol/L N 2-11 Glucose 102 mg/dL High 70-100 Blood Urea Nitrogen 10 mg/dL N 6-24 Creatinine 0.75 mg/dL N 0.51-0.95 BUN/Creatinine Ratio 13.3 N 8-20 Calcium 9.0 mg/dL N 8.6-10.3 Total Protein 5.9 g/dL Low 6.4-8.9 Albumin 3.9 g/dL N 3.2-5.2 Globulin 2.0 g/dL N 2-4 Albumin/Globulin Ratio 2.0 N 1-3 Total Bilirubin 0.40 mg/dL N 0.2-1.0 Alkaline Phosphatase 61 U/L N 34-104 Alt 12 U/L N 7-52 Ast 14 U/L N 13-39 Egfr Non- 87.0 >60 Egfr 105.2 >60 12 CBC Auto Diff 01/08/2019 [facility] White Blood 4.3 10^3/uL N 3.5-10.[address] [place] [address] [phone] Red Blood Count 4.45 10^6/uL N 4.00-5.40 Hemoglobin 13.3 g/dL N 12.0-16.0 Hematocrit 39 % N 35-47 Mean Corpuscular Volume 86 fL N 80-97 Mean Corpuscular Hemoglobin 30 pg N 27-31 Mean Corpuscular HGB Conc 35 g/dL N 31-36 Red Cell Distribution Width 15 % N 10.5-15 Platelet Count 154 10^3/uL N 150-450 Mean Platelet Volume 8.0 fL N 7.4-10.4 Abs Neutrophils 2.4 10^3/uL N 1.5-7.7 Abs Lymphocytes 1.4 10^3/uL N 1.0-4.8 Abs Monocytes 0.4 10^3/uL N 0-0.8 Abs Eosinophils 0.1 10^3/uL N 0-0.6 Abs Basophils 0 10^3/uL N 0-0.2 Abs Nucleated RBC 0 10^3/uL Granulocyte % 54.7 % Lymphocyte % 32.7 % Monocyte % 9.3 % Eosinophil % 2.4 % Basophil % 0.9 % Nucleated Red Blood Cells % 0 Laboratory test 01/08/2019 [facility] C Reactive 6.05 mg/L N < 8.[address] [place] [address] [phone] Stool Occult 01/01/2019 [facility] Stool Occult SEE RESULT neg 13, 14 Blood Diag [address] Blood, [place] [address] [phone] Laboratory test 01/01/2019 [facility] Surgical SEE RESULT 15, [address] [place] [address] [phone] Hla B27 12/01/2018 [facility] Hla B27 Negative [address] [place] [address] [phone] Hla B27 Interp See Comment 18 Quantiferon 12/01/2018 [facility] QuantiFERON-Tb Negative Negative 19 Gold TB [address] [place] [address] [phone] TB1 Ag minus Nil Result 0 IU/mL TB2 Ag minus Nil Result 0 IU/mL TB Mitogen minus Nil Result 8.24 IU/mL TB Nil Result 0.01 IU/mL 20 Hla B27 10/25/2018 [facility] Hla B27 Negative [address] [place] [address] [phone] Hla B27 Interp See Comment 22 Cardiolipin 10/25/2018 [facility] Phospholipid Ab < 9.4 MPL 23 Igg/Igm [address] DR[address] IgM, [place] [address] [phone] Phospholipid Ab IgG < 9.4 GPL 24 Laboratory test 10/25/2018 [facility] Complement C3 158 mg/dL 75 - [address] [place] [address] [phone] Complement C4 34 mg/dL 14 - 40 26 Anti Double Stranded Dna AB <12.3 IU/mL 27 Celiac Panel 10/25/2018 [facility] Tissue Transglutaminase <1.2 U/mL [address] [place] [address] [phone] Immunoglobulin A 231 mg/dL 61 - 356 Celiac Interpretation See Comment 29 Celiac Hla 10/25/2018 [facility] Hla-Dqa1 SEE BELOW [address] [place] [address] [phone] Hla-DQB1 SEE BELOW 31 Celiac Gene Pairs Present? Equivocal Celiac Gene Interpretation See Comment 32 Immunoglobulins 10/25/2018 [facility] Immunoglobulin G 721 Abnormal 767 - 33 Serum Quant [address] mg/dL [address] [place] [address] [phone] Immunoglobulin M 83 mg/dL 37 - 286 Immunoglobulin A 217 mg/dL 61 - 356 Iron & Iron Binding 10/25/2018 [facility] Iron 80 g/dL N 50- [address] [place] [address] [phone] Unsaturated Iron Binding < 479 g/dL Total Iron Binding Capacity 494 g/dL High 250-450 Transferrin 353 mg/dL N 203-362 % Iron Saturation 16 % N 15-55 Laboratory test 10/25/2018 [facility] Ferritin 6.0 ng/mL Low 11-[address] [place] [address] [phone] Vitamin B12 And 10/25/2018 [facility] Vitamin B12 160 pg/mL Low 180-[address] [place] [address] [phone] Folic Acid (Folate) 8.95 ng/mL >3.99 36 Laboratory test 10/25/2018 [facility] Thyroperoxidase AB 1.65 IU /mL N <[address] [place] [address] [phone] Rheumatoid Factor < 10 IU/mL N <15 38 Anca AB Ser If 10/25/2018 [facility] C-[place] [address] [phone] P-Anca Negative Negative 39 Laboratory test 10/25/2018 [facility] Angiotensin 44 U/L 8 - 53 40 finding [place] [address] [phone] Vitamin D Total 25(Oh) 25.4 ng/mL N 20-50 41 Free T4 (Free Thyroxine) 1.00 ng/dL N 0.61-1.12 42 T3 Free 3.40 pg/mL N 2.5-3.9 43 Erythrocyte Sed Rate 20 mm/Hr High 0-14 44 C Reactive Protein 12.12 mg/L High <8.01 45 Nuclear AB 10/25/2018 [facility] Nuclear Ab Positive 1:320 Abnormal 46 (Cynthia) By Ifa (Cynthia) by Ifa, [place] [address] IgG [phone] Cynthia Titer: 1:320 Cynthia Pattern: Dense Fine Speck <SEE NOTE> 47 Laboratory test 11/02/2016 [facility] C Reactive 1.22 mg/L N < 5.00 [address] [place] [address] [phone] Comp Metabolic 11/02/2016 [facility] Sodium 137 mmol/L N 133- [address] [place] [address] [phone] Potassium 3.8 mmol/L N 3.5-5.0 Chloride 103 mmol/L N 101-111 Co2 Carbon Dioxide 27 mmol/L N 22-32 Anion Gap 7 mmol/L N 2-11 Glucose 81 mg/dL N 70-100 Blood Urea Nitrogen 8 mg/dL N 6-24 Creatinine 0.80 mg/dL N 0.51-0.95 BUN/Creatinine Ratio 10.0 N 8-20 Calcium 9.3 mg/dL N 8.6-10.3 Total Protein 6.5 g/dL N 6.4-8.9 Albumin 4.1 g/dL N 3.2-5.2 Globulin 2.4 g/dL N 2-4 Albumin/Globulin Ratio 1.7 N 1-3 Total Bilirubin 0.90 mg/dL N 0.2-1.0 Alkaline Phosphatase 54 U/L N 34-104 Alt 18 U/L N 7-52 Ast 20 U/L N 13-39 Egfr Non- 81.6 N >60 Egfr 105.0 N >60 49 CBC Auto Diff 11/02/2016 [facility] White Blood 4.7 10^3/uL N 3.5-10.[address] [place] [address] [phone] Red Blood Count 4.52 10^6/uL N 4.0-5.4 Hemoglobin 14.4 g/dL N 12.0-16.0 Hematocrit 41 % N 35-47 Mean Corpuscular Volume 91 fL N 80-97 Mean Corpuscular Hemoglobin 32 pg High 27-31 Mean Corpuscular HGB Conc 35 g/dL N 31-36 Red Cell Distribution Width 13 % N 10.5-15 Platelet Count 147 10^3/uL Low 150-450 Mean Platelet Volume 9 um3 N 7.4-10.4 Abs Neutrophils 2.7 10^3/uL N 1.5-7.7 Abs Lymphocytes 1.4 10^3/uL N 1.0-4.8 Abs Monocytes 0.5 10^3/uL N 0-0.8 Abs Eosinophils 0.1 10^3/uL N 0-0.6 Abs Basophils 0 10^3/uL N 0-0.2 Abs Nucleated RBC 0 10^3/uL N Granulocyte % 57.1 % N 38-83 Lymphocyte % 29.7 % N 25-47 Monocyte % 10.1 % High 1-9 Eosinophil % 2.3 % N 0-6 Basophil % 0.8 % N 0-2 Nucleated Red Blood Cells % 0.1 N Comp Metabolic Panel 01/17/2016 [facility] Sodium 137 mmol/L N 133-[address] [place] [address] [phone] Potassium 4.0 mmol/L N 3.5-5.0 Chloride 106 mmol/L N 101-111 Co2 Carbon Dioxide 26 mmol/L N 22-32 Anion Gap 5 mmol/L N 2-11 Glucose 97 mg/dL N 70-100 Blood Urea Nitrogen 9 mg/dL N 6-24 Creatinine 0.89 mg/dL N 0.51-0.95 BUN/Creatinine Ratio 10.1 N 8-20 Calcium 9.2 mg/dL N 8.6-10.3 Total Protein 6.2 g/dL Low 6.4-8.9 Albumin 4.1 g/dL N 3.2-5.2 Globulin 2.1 g/dL N 2-4 Albumin/Globulin Ratio 2.0 N 1-3 Total Bilirubin 0.90 mg/dL N 0.2-1.0 Alkaline Phosphatase 55 U/L N 34-104 Alt 23 U/L N 7-52 Ast 26 U/L N 13-39 Egfr Non- 72.6 N >60 Egfr 93.4 N >60 50 Cortisol Free 10/15/2014 [facility] Urine Free 13 mcg/24h N 3.5-45 51 24HR Urine [address] [place] [address] [phone] Urine Collection Duration 24 h N Urine Total Volume 3100 mL N 52 Laboratory test 10/14/2014 [facility] Free T4 0.88 ng/mL N 0.61-1.[address] [place] [address] [phone] TSH (Thyroid Stimulating Horm) 1.55 IU/mL N 0.34-5.60 Cortisol 12.37 g/dL N 53 Hemoglobin A1c 4.9 % N Less than 6.0 54 17 Hydroxy Progesterone 52 ng/dL N 55 Acth 43 pg/mL N 56 1 Because ethnic data is not always [...] 5 Kidney failure <15 (or dialysis) 2 Because ethnic data is not always readily [...] 15-29 5 Kidney failure <15 (or dialysis) 3 Normal Range 180 to 914 Indeterminate Range 145 to 180 Deficient Range <145 4 Because ethnic data is not always readily [...] 15-29 5 Kidney failure <15 (or dialysis) 5 Because ethnic data is not always readily [...] 15-29 5 Kidney failure <15 (or dialysis) 6 Because ethnic data is not always readily [...] 15-29 5 Kidney failure <15 (or dialysis) 7 Test Performed by: [facility] [address] [place] [address] Bunny Aldana M.D. Director of Laboratory 8 Test Performed by: [facility] [address] [place], [place] [address] Bunny Aldana M.D. Director of Laboratory 9 ORDERED:01/08/2019 EXPIRES:07/08/2019 10 Because ethnic data is not always readily [...] 15-29 5 Kidney failure <15 (or dialysis) 11 Normal Range 180 to 914 Indeterminate Range 145 to 180 Deficient Range <145 12 Because ethnic data is not always readily [...] 15-29 5 Kidney failure <15 (or dialysis) 13 [id number] SEE RESULT BELOW Name: JACKIE BLACKWELL : [address]: Kishor Singh MD Acct: [id number] Unit: [id number] AGE: 38 Location: [facility] Re01/01/19 SEX: F Status: REG REF SPEC: [id number] ZIA: 01/01/19-941 [facility] [address]: Kishor Singh MD REQ: [id number] RECD: 01/01/19-1234 STATUS: DERRICK PEREZ DR: Gian Diamond MD _ SOURCE: STOOL SPDESC: ORDERED: Occult Arleth Gomez COMMENTS: [id number] Procedure Result Reported Site Stool Occult Blood (1) Final 01/01/19- 1258 ML Stool Occult Blood Negative * - Main Lab . END OF REPORT DEPARTMENT OF PATHOLOGY, [address] [place] [address] Bunny Aldana M.D. Director [facility] # [id number] 15 [id number] 16 SEE RESULT BELOW Name: JACKIE BLACKWELL : [address]: Kishor Singh MD Acct: [id number] Unit: [id number] AGE: 38 Location: END[facility] Re01/01/19 SEX: F Status: DEP REF SPEC: [id number] ZIA: 01/01/19 [facility] [address]: Kishor Singh MD REQ: [id number] RECD: 01/01/19 STATUS: JULIUS PEREZ DR: Gian Diamond MD _ ORDERED: LEVEL 4/2 COMMENTS: [id number] FINAL DIAGNOSIS 1. Duodenum, third portion, biopsy: -- Benign small intestinal mucosa with no significant pathologic abnormalities. -- No evidence of villous blunting or increased intraepithelial lymphocytes. 2. Esophagus, at 35 cm, biopsy: -- Benign squamous and columnar-type mucosa with chronic inflammation. -- Intestinal metaplasia is absent. -- Dysplasia is absent. CLINICAL HISTORY Upper abdominal pain; constant diarrhea and pains POST-OPERATIVE DIAGNOSIS EGD: normal larynx; esophagus - smooth, no erosions; stomach - normal; duodenum - normal; conclusions: hiatal hernia; gastroesophageal reflux disease; anemia GROSS DESCRIPTION 1. The specimen is received in formalin labeled, Biopsies Third Portion Duodenum, and consists of a 1.0 x 0.4 x 0.2 cm aggregate of brown-pink irregular soft tissue fragments which is submitted entirely in one cassette. 2. The specimen is received in formalin labeled, Biopsy Esophagus at 35 cm , and consists of two brown-pink irregular soft tissue fragments averaging 0.4 x 0.2 x 0.1 cm which are CONTINUED ON NEXT PAGE DEPARTMENT OF PATHOLOGY, [address] [place] [address] Bunny Aldana M.D. Director [facility] # [id number] RUN DATE: 01/02/19 [facility] LAB LIVE PAGE 2 Patient: JACKIE BLACKWELL [id number] (Continued) GROSS DESCRIPTION (Continued) submitted entirely in one cassette. Signed by and Reported on: Aviva Hanna MD 01/02/19 1047 END OF REPORT DEPARTMENT OF PATHOLOGY, [address] [place] [address] Bnuny Aldana M.D. Director [facility] # [id number] 17 REFERENCE VALUE Not Applicable 18 RESULT: HLA-B27 antigen was not detected. ADDITIONAL INFORMATION Method: Flow Cytometry Performing Laboratory CLIA# [id number] Test Performed by: [address] [address] 19 No interferon-gamma response to M. tuberculosis antigens was detected. Infection with M. tuberculosis is unlikely. A single negative result does not exclude infection with M. tuberculosis. In patients at high risk for M.tuberculosis infection, a second test should be considered in accordance with the 2017 ATS/IDSA/CDC Clinical Practice Guidelines for Diagnosis of Tuberculosis in Adults and Children [Melanie WIN et. al. Clin. Infect. Dis. 2017;64(2):111-115]. The reference range for the 'TB1 Ag minus Nil Result' and 'TB2 Ag minus Nil Result' is an Interferon-gamma level <0.35 IU/mL. 20 Test Performed by: [facility] [address] [place] [address] 21 REFERENCE VALUE Not Applicable 22 RESULT: HLA-B27 antigen was not detected. ADDITIONAL INFORMATION Method: Flow Cytometry Performing Laboratory CLIA# [id number] Test Performed by: [address] [address] 23 REFERENCE VALUE <15.0 (Negative) 24 REFERENCE VALUE <15.0 (Negative) Test Performed by: [address] [address] 25 Test Performed by: [address] [address] 26 Test Performed by: [address] [address] 27 REFERENCE VALUE <30.0 (Negative) Test Performed by: [facility] [facility] [address] [place] [address] 28 REFERENCE VALUE <4.0 (Negative) Test Performed by: [place] [address] 29 Negative serology. Celiac disease unlikely. However, approximately 10% of patients with celiac disease are seronegative. Also, patients who are already adhering to a gluten-free diet may be seronegative. If celiac disease is highly clinically suspected, consider HLA-DQ typing. Test Performed by: [facility] [place] [address] 30 RESULT: 01:03,02:01 REFERENCE VALUE Not Applicable 31 RESULT: 02:02,06:03 DQ Serologic Equivalent: 2,6 REFERENCE VALUE Not Applicable 32 While the patient lacks the gene pairs [...] medium resolution molecular values. Performing Laboratory CLIA# [id number] Test Performed by: [place] [address] 33 Test Performed by: [place] [address] 34 Please check labs this week 35 Normal Range 180 to 914 Indeterminate Range 145 to 180 Deficient Range <145 36 Please check labs this week 37 Please check labs this week 38 Please check labs this week 39 Negative for cANCA and pANCA patterns by immunofluorescence. ADDITIONAL INFORMATION This test was developed and its performance characteristics determined by [facility] in a manner consistent with CLIA requirements. This test has not been cleared or approved by the U.S. Food and Drug Administration. Test Performed by: [facility] [address] [place] [address] 40 Test Performed by: [facility] [address] [place] [address] 41 Please check labs this week 42 Please check labs this week 43 Please check labs this week 44 Please check labs this week 45 Please check labs this week 46 REFERENCE VALUE <1:80 (Negative) 47 Dense Fine Speckled Test Performed by: [facility] [address] [place] [address] 48 Acute inflammation: >10.00 49 Because ethnic data is not always readily [...] 15-29 5 Kidney failure <15 (or dialysis) 50 Because ethnic data is not always readily [...] 15-29 5 Kidney failure <15 (or dialysis) 51 ~~24 HOUR URINE COLLECTED FROM 10/14/14 0900 TO 10/15/14 0900 52 Test Performed by: [address] [address] Merchandising Representative: Tommy Nieto M.D. 53 AM 8.7-22.4 PM <10 54 Therapeutic target for the treatment of diabetes Mellitus patients is <7% HBA1C, and in selective patients <6.0%.Please refer to [place] [employer] Diabetic care guidelines for further information. 55 REFERENCE VALUE < 80 (Follicular) <285 (Luteal) Test Performed by: [address] [address] Merchandising Representative: Tommy Nieto M.D. 56 REFERENCE VALUE 10-60 (a.m. collection) Test Performed by: [address] [address] Merchandising Representative: Tommy Nieto M.D. 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 lipomatous neoplasm of skin, subcu of trunk Office Visit 02/01/2019 [facility] Gastroenterology Taylor Portillo, E61.1 Iron deficiency 11:15a SHIFT MANAGER E53.8 Deficiency of other specified B group vitamins R19.7 Diarrhea, unspecified Office Visit 01/08/2019 Rheumatology Don M32.9 Systemic lupus 3:00p [facility] Richelle Colon M.D. erythematosus, unspecified D86.9 Sarcoidosis, unspecified Z79.899 [facility] [place] [facility] drug therapy E53.8 Deficiency of other specified B group vitamins Office Visit 12/11/2018 [facility] G[facility]enterology Taylor Z79.899 [facility] [place] [facility] 8:45a CHINO Portillo (current) drug therapy K90.0 Celiac disease D50.9 Iron deficiency anemia, unspecified Office Visit 11/30/2018 Rheumatology Don M32.9 Systemic lupus 3:40p [facility] Richelle Colon M.D. 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 left lower limb Office Visit 05/26/2017 Orthopedic Deven M79.672 Pain in left foot 8:30a Services Of Miri Lopez C.M.A. Office Visit 05/13/2017 Zaina Carvalho S93.402A Sprain of 1:00p Services Of Miri Lopez unspecified C.M.A. ligament of left ankle, init encntr Office Visit 05/03/2017 Panchito Gage G43.909 Migraine, unsp, not 10:45a charlie Lenz, Services Of Richelle MAnderson without status migrainosus Office Visit 11/02/2016 Panchito Gage G43.909 Migraine, unsp, not 8:45a Neurologic Jay intractable, Services Of Richelle M.DAnais without status migrainosus R22.2 Localized swelling, mass and lump, trunk Office Visit 01/15/2016 Panchito Gage G43.909 Migraine, unsp, 10:15a Juliet Thompson M.D. not intractable, Services Of Teacher Dancing without status migrainosus R25.2 Cramp and spasm Office Visit 04/08/2015 10:00a Panchito Thompson, 784.0 Headache Services Of Richelle Chery 346.91 Migraine Unspec W/ Intractable W/O Status Migrainosus Office Visit 10/31/2014 10:30a Panchito Gage 346.90 Migraine Unspec Neurologic Miri Thompson W/O Intractable [facility] W/O Status Migrainosus Office Visit 06/06/2014 10:15a Panchito Gage 346.90 Migraine Unspec Neurologic Miri Thompson W/O Intractable [facility] W/O Status Migrainosus Office Visit 12/14/2013 8:45a Panchito Gage 356.9 Neuropathy 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 Peripheral Hereditary Idiopathic Unspec 724.4 Neuritis Or Radiculitis Thoracic Or Lumbosacral Unspec 346.90 Migraine Unspec W/O Intractable W/O Status Migrainosus Office Visit 03/08/2013 10:30a [facility]anch[facility] Neurologic Juani Gage 356.9 Neuropathy [facility] Richelle Thompson M.D. Peripheral Hereditary Idiopathic Unspec 724.4 Neuritis Or Radiculitis Thoracic Or Lumbosacral Unspec Office Visit 12/07/2012 11:30a Panch[facility] Neurologic Juani Gage 356.9 Neuropathy Services Of Richelle Thompson M.D. Peripheral Hereditary Idiopathic Unspec 724.2 Lumbago Office Visit 02/19/2011 8:30a Orthopedic Fozia 354.2 Lesion Ulnar Services Of Miri Quinn Nerve C.M.A. Office Visit 12/22/2010 9:30a Orthopedic Fozia 354.2 Lesion Ulnar Services Of Miri Quinn Nerve C.M.A. Plan of Treatment Future Appointment(s):09/24/2019 10:40 am - Don Colon M.D. at [facility]07/09/2019 11:30 am - Taylor Portillo NP at [facility] Wmyevhyofgpibamp48/ 19/2019 - Don Colon M.D.M32.9 Systemic lupus erythematosus, qoiwiczqqdaZ82.9 Sarcoidosis, unspecifiedComments:Please avoid direct exposure to the sun as you are at risk for reactions from sun exposure. The bestway to prevent symptoms of photosensitivity is to limit the amount of time you spend in the sun. Many medications and medical conditions may increase the risk for photosensitivity.While sunscreen may help, covering and protecting your skin may also help prevent a reaction and this is the best way to prevent photosensitivity . People who are photosensitive can reduce symptoms by wearing hats, sunglasses, and long sleeves when outside.These simple tips can help protect your skin and help you live a healthy life. Anyone who is out in the sun for more than 20 minutes daily should apply sunscreen, but people who have lupus should be especially vigilant. Sunscreen should have a sun protection factor (SPF) of at least 30.Studies used to suggest that UVB rays -- the rays responsible for burning -- were most dangerous to people with lupus. But more recent research shows that UVA rays -- those responsible for wrinkling the skin -- can also aggravate lupus. With that in mind, you should look for broad- spectrum protection sunscreen that blocks both UVA and UVB rays.Apply sunscreen liberally: It takes at least 1 ounce of sunscreen to cover your entire body. Remember to reapply at least every 2 hours. Sweat, water, contact, and clothing can all rub off the sunscreen you've applied. People often forget toapply sunscreen to their necks, backs, and ears, all of which are commonly affected by photosensitivity related to lupus.Follow up:Follow up in 3 months or sooner if npmtwxR71.8 Deficiency of other specified B group asqifogvG40.899 [place] [facility] [place] (current[place] drug therapyFollow up:Follow up in 3 months or sooner if needed
--- OUTSIDE RECORDS SUMMARY | 2019-07-02 19:37 | XMS REPORT | Continuity of Care Document ---
:1980 External Reference #:[id number] Author Name Vitor Kent MD Address [address] [place] [address] Care Team Providers Name Role Phone Don Colon MD Care Team Information Manager Of Radiology Unavailable Aviva Castorena, Primary Care Physician Unavailable Payers Date Identification Numbers Payment Provider Subscriber Policy Number: [id number] [email or web address] Jackie Blackwell PayID: [id number] [address] [address] [place] [address] Problems Active Problems Provider Date Cramp in [...] Tablets ER 24HR Excedrin Migraine prn Unknown [phone] Tablets Buspirone HCL Unknown 15mg Tablets [...] CPT Code Status Date Vaccine Lot # 55032 Given 12/08/2018 Pneumococcal Vaccine 2Yrs Or Older 8566-1511-51 [id number] Vital Signs Date Vital Result Comment 06/08/2019 [...] House [facility] Immunoglobulin A 195 mg/dL N 81-463 [phone] Immunoglobulin G 812 mg/dL N [phone] Immunoglobulin M 79 mg/dL N 48-271 Hepatic Function 05/18/2019 [facility] Protein, Total 6.7 g/dL N 6.1-8.1 Panel [phone] Albumin 4.2 g/dL N 3.6-5.1 Globulin 2.5 [...] Lab Enhanced PDF Report SEE IMAGE finding [phone] [id number] Laboratory test 10/25/2018 N2N/CCD Import Cynthia Pattern: [...] 1 Dense Fine Speckled Test Performed by: [place] [address] 2 Test Performed by: [place] [address] 3 REFERENCE VALUE <30.0 (Negative) Test Performed by: [facility] [address] [place] [address] 4 Please check labs this week 5 [...] medium resolution molecular values. Performing Laboratory CLIA# [id number] Test Performed by: [place] [address] 6 Negative serology. Celiac disease unlikely. However, approximately 10% of patients with celiac disease are seronegative. Also, patients who are already adhering to a gluten-free diet may be seronegative. If celiac disease is highly clinically suspected, consider HLA-DQ typing. Test Performed by: [place] [address] 7 Test Performed by: [place] [address] 8 Test Performed by: [address] [address] 9 Please check labs this week 10 Please check labs this week 11 Please check labs this week 12 REFERENCE VALUE Not Applicable 13 RESULT: HLA-B27 antigen was not detected. ADDITIONAL INFORMATION Method: Flow Cytometry Performing Laboratory CLIA# [id number] Test Performed by: [place] [address] 14 RESULT: 02:02,06:03 DQ Serologic Equivalent: 2,6 REFERENCE VALUE Not Applicable 15 RESULT: 01:03,02:01 REFERENCE VALUE Not Applicable 16 Test Performed by: [place] [address] 17 REFERENCE VALUE <1:80 (Negative) 18 Please check labs this week 19 Please check labs this week 20 Please check labs this week 21 REFERENCE VALUE <4.0 (Negative) Test Performed by: [place] [address] 22 Please check labs this week 23 Negative for cANCA and pANCA patterns by immunofluorescence. ADDITIONAL INFORMATION This test was developed and its performance characteristics determined by [facility] in a manner consistent with CLIA requirements. This test has not been cleared or approved by the U.S. Food and Drug Administration. Test Performed by: [facility] [address] [place] [address] 24 REFERENCE VALUE <15.0 (Negative) Test Performed by: [facility] [address] [place] [address] 25 REFERENCE VALUE <15.0 (Negative) 26 Please [...] dialysis) Procedures Date Code Description Status 05/18/2019 42178 IV Infusion For Therapy,Prophylaxis Or Diagnosis Completed Additional Hour 05/18/2019 56555 IV Infusion For Therapy,Prophylaxis Or Diagnosis Init Up Completed To 1 HR 05/18/2019 33791 IV Infusion For Therapy,Prophylaxis Or Diagnosis Init Up Completed To 1 HR 05/18/2019 19917 IV Infusion For Therapy,Prophylaxis Or Diagnosis Init Up Completed To 1 HR 04/20/2019 15344 IV Infusion For Therapy,Prophylaxis Or Diagnosis Completed Additional Hour 04/20/2019 92011 IV Infusion For Therapy,Prophylaxis Or Diagnosis Completed Additional Hour 04/20/2019 52475 IV Infusion For Therapy,Prophylaxis Or Diagnosis Init Up Completed To 1 HR 04/20/2019 90518 IV Infusion For Therapy,Prophylaxis Or Diagnosis Init [...] Future Appointment(s):06/18/2019 1:00 pm - Infusion at [place]
[2019-07-02 22:24] LABS: ABS Eosinophils 0.2 10^3/ul (0-0.6); ABS Lymphocytes 2.6 10^3/ul (1.0-4.8); ABS Monocytes 0.7 10^3/ul (0-0.8); ABS Neutrophils 4.5 10^3/ul (1.5-7.7); Eosinophil % 2.1 %; Hematocrit 42 % (35-47); Hemoglobin 14.4 g/dL (12.0-16.0); Lymphocyte % 32.5 %; Mean Corpuscular HGB Conc 35 g/dL (31-36); Mean Corpuscular Hemoglobin 31 pg (27-31); Mean Corpuscular Volume 90 fL (80-97); Mean Platelet Volume 8.5 fL (7.4-10.4); Nucleated Red Blood Cells % 0.1; Platelet Count 172 10^3/uL (150-450); Red Blood Count 4.64 10^6 /uL (3.70-4.87); Red Cell Distribution Width 16 % (10-15); White Blood Count 7.9 10^3/uL (3.5-10.8)
[2019-07-02 22:35] LABS: Urine Appearance Cloudy; Urine Bilirubin Negative (Negative); Urine Blood Negative (Negative); Urine Color Yellow; Urine Glucose Negative (Negative); Urine Ketones Negative (Negative); Urine Nitrite Negative (Negative); Urine Protein Negative (Negative); Urine Urobilinogen Negative (Negative)
[2019-07-02 22:37] LABS: ALT 12 U/L (7-52); AST 15 U/L (13-39); Albumin 3.9 g/dL (3.2-5.2); Albumin/Globulin Ratio 1.6 (1-3); Alkaline Phosphatase 70 U/L (34-104); Anion Gap 7 mmol/L (2-11); BUN/Creatinine Ratio 12.2 (8-20); Blood Urea Nitrogen 10 mg/dL (6-24); C Reactive Protein 2.08 mg/L (<8.01); CO2 Carbon Dioxide 25 mmol/L (22-32); Calcium 9.3 mg/dL (8.6-10.3); Chloride 107 mmol/L (101-111); EGFR African American 94.4 (>60); Globulin 2.5 g/dL (2-4); Glucose 97 mg/dL (70-100); Potassium 3.5 mmol/L (3.5-5.0); Sodium 139 mmol/L (135-145); Total Protein 6.4 g/dL (6.4-8.9)
[2019-07-02 22:43] LABS: HCG Pregnancy < 0.60 mIU/mL
[2019-07-02] MEDS ORDERED: Morphine 4 MG/ML VIAL (1 ml) 4 MG/ML VIAL IV ONE (22:45)
[2019-07-02] MEDS ORDERED: Ondansetron INJ* 2 MG/ML VIAL IV ONE (22:45)
[2019-07-02] MEDS ORDERED: Ketorolac INJ* 30 MG/ML 1 ML VIAL IV PUSH ONE (22:46)
--- NOTE | 2019-07-02 22:56 | ED ---
Abdominal Pain/Female - HPI Summary HPI Summary: Pt is a 39 y/o F presenting to the ED with a chief complaint of R sided flank pain first onset on 06/29/19. She reports nausea, decrease in urination, decreased appetite, diarrhea, and abd pain. She denies hematuria, CP, SOB, fever , and chills. She has hx of kidney stones, IBS, and appendectomy. Sx aggravated by movement or deep breaths. - History of Current Complaint Chief Complaint: EDFlankPain Stated Complaint: ABD PAIN/FLANK PAIN PER PT Time Seen by Provider: 07/02/19 21:51 Hx Obtained From: Patient Onset/Duration: Gradual Onset, Lasting Days, Still Present Timing: Days Severity Initially: Moderate Severity Currently: Severe Pain Intensity: 7 Pain Scale Used: 0-10 Numeric Location: Flank - R side Radiates: No Aggravating Factor(s): Movement, Deep Breaths Alleviating Factor(s): Nothing Associated Signs and Symptoms: Positive: Urinary Symptoms - pos - decrease in urination. neg - hematuria, Decreased Appetite, Nausea, Diarrhea. Negative: Fever, Chest Pain Allergies/Adverse Reactions: Allergies Allergy/AdvReac Type Severity Reaction Status Date / Time Adhesive Tape Allergy Intermediate Rash Verified 07/02/19 19:31 pregabalin Allergy Mild Unknown Verified 07/02/19 19:31 Reaction Details latex Allergy Rash Verified 07/02/19 19:31 Penicillins Allergy Rash Verified 07/02/19 19:31 clarithromycin [From Biaxin] AdvReac Intermediate Nausea And Verified 07/02/19 19:31 Vomiting clindamycin AdvReac Intermediate Nausea And Verified 07/02/19 19:31 Vomiting tramadol AdvReac Intermediate Nausea And Verified 07/02/19 19:31 Vomiting bupropion AdvReac Nausea Verified 07/02/19 19:31 PMH/Surg Hx/FS Hx/Imm Hx Previously Healthy: Yes Endocrine/Hematology History: Reports: Hx Systemic Lupus Erythematosus Denies: Hx Diabetes Cardiovascular History: Reports: Hx Hypertension - on medication Denies: Hx Pacemaker/ICD, Other Cardiovascular Problems/Disorders Respiratory History: Reports: Hx Asthma - no meds currently, Hx Sleep Apnea Denies: Other Respiratory Problems/Disorders GI History: Reports: Hx Gastroesophageal Reflux Disease - on medication, Hx Hiatal Hernia, Hx Irritable Bowel Denies: Other GI Disorders History: Reports: Hx Kidney Infection, Hx Kidney Stones - history of, none recent, Other Problems/Disorders - Prone to UTIs, none recent Musculoskeletal History: Reports: Hx Arthritis, Hx Back Problems, Hx Bursitis, Hx Tendonitis, Other Musculoskeletal History - left cuboid fracture, 05/14, Degenerative disc disease, LUPUS Sensory History: Denies: Hx Contacts or Glasses, Hx Hearing Aid Opthamlomology History: Denies: Hx Contacts or Glasses Neurological History: Reports: Hx Migraine, Other Neuro Impairments/Disorders - Neuropathy Psychiatric History: Reports: Hx Anxiety - riding in cars Denies: Hx Panic Disorder - Surgical History Surgery Procedure, Year, and Place: HYSTERECTOMY; Exploratory Lap Abdomen; Tubal Ligation; Appendectomy; Lymph Node Biopsy of Lung; Tonsilectomy; Left Ulnar Nerve Surgery; Removal of wisdom teeth Hx Anesthesia Reactions: Yes - states they had a hard time waking her up - Immunization History Date of Influenza Vaccine: has not received Infectious Disease History: No Infectious Disease History: Reports: Hx Hepatitis - pt is unsure, age 17, wasn' t allowed to breast feed, never treated Denies: Traveled Outside the [place] in Last 30 Days - Family History Known Family History: Negative: Cardiac Disease, Hypertension, Diabetes - Social History Alcohol Use: None Hx Substance Use: No Substance Use Type: Reports: None Substance Use Comment - Amount & Last Used: occas Hx Tobacco Use: Yes Smoking Status (MU): Former Smoker Type: Cigarettes Amount Used/How Often: 1/2 PPD Have You Smoked in the Last Year: Yes Review of Systems Positive: Other - decreased appetite. Negative: Fever, Chills Negative: Chest Pain Negative: Shortness Of Breath Positive: Abdominal Pain, Diarrhea. Negative: Nausea Positive: other - decrease in urination. Negative: hematuria All Other Systems Reviewed And Are Negative: Yes Physical Exam - Summary Physical Exam Summary: Constitutional: Well-developed, Well-nourished, Alert. (-) Distressed Skin: Warm, Dry HENT: Normocephalic; Atraumatic Eyes: Conjunctiva normal Neck: Musculoskeletal ROM normal neck. (-) JVD, (-) Stridor, (-) Tracheal deviation Cardio: Rhythm regular, rate normal, Heart sounds normal; Intact distal pulses; The pedal pulses are 2+ and symmetric. Radial pulses are 2+ and symmetric. (-) Murmur Pulmonary/Chest wall: Effort normal. (-) Respiratory distress, (-) Wheezes, (-) Rales Abd: Soft, present R mid-lower flank tenderness to palpation, (-) Distension, (- ) Guarding, (-) Rebound Musculoskeletal: (-) Edema Lymph: (-) Cervical adenopathy Neuro: Alert, Oriented x3 Psych: Mood and affect Normal Triage Information Reviewed: Yes Vital Signs On Initial Exam: Initial Vitals Temp Pulse Resp BP Pulse Ox 97.5 F 80 16 118/84 99 07/02/19 19:29 07/02/19 19:29 07/02/19 19:29 07/02/19 19:29 07/02/19 19:29 Vital Signs Reviewed: Yes Diagnostics - Vital Signs Vital Signs Temp Pulse Resp BP Pulse Ox 07/02/19 21:32 98.2 F 75 14 127/14 97 07/02/19 19:29 97.5 F 80 16 118/84 99 - Laboratory Lab Results: Lab Results 07/02/19 07/02/19 07/02/19 Range/Units 22:08 22:08 22:08 WBC 7.9 (3.5-10.8) 10^3/uL RBC 4.64 (3.70-4.87) 10^6 /uL Hgb 14.4 (12.0-16.0) g/dL Hct 42 (35-47) % MCV 90 (80-97) fL MCH 31 (27-31) pg MCHC 35 (31-36) g/dL RDW 16 H (10-15) % Plt Count 172 (150-450) 10^3/uL MPV 8.5 (7.4-10.4) fL Neut % (Auto) 56.6 % Lymph % (Auto) 32.5 % [place] % (Auto) 8.3 % Eos % (Auto) 2.1 % Baso % (Auto) 0.5 % Absolute Neuts (auto) 4.5 (1.5-7.7) 10^3/ul Absolute Lymphs (auto) 2.6 (1.0-4.8) 10^3/ul Absolute Monos (auto) 0.7 (0-0.8) 10^3/ul Absolute Eos (auto) 0.2 (0-0.6) 10^3/ul Absolute Basos (auto) 0.0 (0-0.2) 10^3/ul Absolute Nucleated RBC 0.0 10^3/ul Nucleated RBC % 0.1 Sodium 139 (135-145) mmol/L Potassium 3.5 (3.5-5.0) mmol/L Chloride 107 (101-111) mmol/L Carbon Dioxide 25 (22-32) mmol/L Anion Gap 7 (2-11) mmol/L BUN 10 (6-24) mg/dL Creatinine 0.82 (0.51-0.95) mg/dL Est GFR ( Amer) 94.4 (>60) Est GFR (Non-Af Amer) 78.0 (>60) BUN/Creatinine Ratio 12.2 (8-20) Glucose 97 (70-100) mg/dL Lactic Acid 0.8 (0.5-2.0) mmol/L Calcium 9.3 (8.6-10.3) mg/dL Total Bilirubin 0.50 (0.2-1.0) mg/dL AST 15 (13-39) U/L ALT 12 (7-52) U/L Alkaline Phosphatase 70 (34-104) U/L C-Reactive Protein 2.08 (<8.01) mg/L Total Protein 6.4 (6.4-8.9) g/dL Albumin 3.9 (3.2-5.2) g/dL Globulin 2.5 (2-4) g/dL Albumin/Globulin Ratio 1.6 (1-3) Lipase 21 (11.0-82.0) U/L Beta HCG, Quant < 0.60 mIU/mL Urine Color Urine Appearance Urine pH (5-9) Ur Specific [place] (1.010-1.030) Urine Protein (Negative) Urine Ketones (Negative) Urine Blood (Negative) Urine Nitrate (Negative) Urine Bilirubin (Negative) Urine Urobilinogen (Negative) Ur Leukocyte Esterase (Negative) Urine Glucose (Negative) 07/02/19 Range/Units 22:22 WBC (3.5-10.8) 10^3/uL RBC (3.70-4.87) 10^6 /uL Hgb (12.0-16.0) g/dL Hct (35-47) % MCV (80-97) fL MCH (27-31) pg MCHC (31-36) g/dL RDW (10-15) % Plt Count (150-450) 10^3/uL MPV (7.4-10.4) fL Neut % (Auto) % Lymph % (Auto) % [place] % (Auto) % Eos % (Auto) % Baso % (Auto) % Absolute Neuts (auto) (1.5-7.7) 10^3/ul Absolute Lymphs (auto) (1.0-4.8) 10^3/ul Absolute Monos (auto) (0-0.8) 10^3/ul Absolute Eos (auto) (0-0.6) 10^3/ul Absolute Basos (auto) (0-0.2) 10^3/ul Absolute Nucleated RBC 10^3/ul Nucleated RBC % Sodium (135-145) mmol/L Potassium (3.5-5.0) mmol/L Chloride (101-111) mmol/L Carbon Dioxide (22-32) mmol/L Anion Gap (2-11) mmol/L BUN (6-24) mg/dL Creatinine (0.51-0.95) mg/dL Est GFR ( Amer) (>60) Est GFR (Non-Af Amer) (>60) BUN/Creatinine Ratio (8-20) Glucose (70-100) mg/dL Lactic Acid (0.5-2.0) mmol/L Calcium (8.6-10.3) mg/dL Total Bilirubin (0.2-1.0) mg/dL AST (13-39) U/L ALT (7-52) U/L Alkaline Phosphatase (34-104) U/L C-Reactive Protein (<8.01) mg/L Total Protein (6.4-8.9) g/dL Albumin (3.2-5.2) g/dL Globulin (2-4) g/dL Albumin/Globulin Ratio (1-3) Lipase (11.0-82.0) U/L Beta HCG, Quant mIU/mL Urine Color Yellow Urine Appearance Cloudy Urine pH 5.0 (5-9) Ur Specific [place] 1.020 (1.010-1.030) Urine Protein Negative (Negative) Urine Ketones Negative (Negative) Urine Blood Negative (Negative) Urine Nitrate Negative (Negative) Urine Bilirubin Negative (Negative) Urine Urobilinogen Negative (Negative) Ur Leukocyte Esterase Negative (Negative) Urine Glucose Negative (Negative) Result Diagrams: 07/02/19 22:08 07/02/19 22:08 Lab Statement: Any lab studies that have been ordered have been reviewed, and results considered in the medical decision making process. - CT CT a/p CT Interpretation Completed By: Radiologist Summary of CT Findings: 1. Status post appendectomy and hysterectomy. 2. Minimal nonobstructing left renal calculus. No ureteral calculi are evident and there is no evidence of obstructive uropathy. 3. Otherwise negative CT abdomen/pelvis. ED physician has reviewed this report. Abdominal Pain Fem Course/Dx - Course Course Of Treatment: Pt is a 39 y/o F presenting to the ED with a chief complaint of R sided flank pain first onset on 06/29/19. She reports nausea, decrease in urination, decreased appetite, diarrhea, and abd pain. She denies hematuria, CP, SOB, fever, and chills. She has hx of kidney stones, IBS, and appendectomy. Sx aggravated by movement and deep breaths. Pt has mid to lower R flank tenderness to palpation, but her PE is otherwise nml. CT a/p shows: 1. Status post appendectomy and hysterectomy. 2. Minimal nonobstructing left renal calculus. No ureteral calculi are evident and there is no evidence of obstructive uropathy. 3. Otherwise negative CT abdomen/pelvis. She will be d/c 'ed with dx of abd pain, R flank pain, and viral syndrome. She is stable and agreeable with this plan. - Diagnoses Provider Diagnoses: Abdominal pain, Right flank pain, Viral syndrome Discharge - Sign-Out/Discharge Documenting (check all that apply): Patient Departure Patient Received Moderate/Deep Sedation with Procedure: No - Discharge Plan Condition: Stable Disposition: HOME Patient Education Materials: Acute Abdominal Pain (ED) Print Language: LATVIAN Referrals: Gian Diamond MD [Primary Care Provider] - - Billing Disposition and Condition Condition: STABLE Disposition: Home - Attestation Statements Document Initiated by Scribe: Yes Documenting Scribe: Yasmeen Aguirre Provider For Whom Sonido is Documenting (Include Credential): Hamida Hughes MD. Scribe Attestation: Yasmeen Ingram, scribed for Hamida Khalil MD. on 07/03/19 at 0517. Scribe Documentation Reviewed: Yes Provider Attestation: The documentation as recorded by the scribe, Yasmeen Aguirre accurately reflects the service I personally performed and the decisions made by me, Hamida Khalil MD. Status of Scribe Document: Viewed
[2019-07-03 00:25] VITALS: BP 96/60
== END 2019-07-03 00:23 | disposition home or self-care (01) ==
LOC: ED 19:24
DX: R10.31 Right lower quadrant pain (principal); B34.9 Viral infection, unspecified; N20.0 Calculus of kidney; Z87.442 Personal history of urinary calculi; R39.198 Other difficulties with micturition; M32.9 Systemic lupus erythematosus, unspecified; I10 Essential (primary) hypertension; K21.9 Gastro-esophageal reflux disease without esophagitis; K44.9 Diaphragmatic hernia without obstruction or gangrene; Z87.440 Personal history of urinary (tract) infections; Z90.89 Acquired absence of other organs; Z90.710 Acquired absence of both cervix and uterus; Z88.1 Allergy status to other antibiotic agents; Z91.040 Latex allergy status; Z88.5 Allergy status to narcotic agent; Z88.0 Allergy status to penicillin; Z88.8 Allergy status to other drugs, medicaments and biological substances; Z91.048 Other nonmedicinal substance allergy status; Z87.891 Personal history of nicotine dependence
CPT/HCPCS: 36415; 74176; 80053; 81003; 83605; 83690; 84702; 85025; 86140; 96374; 96375; 99283; J1885; J2270; J2405